=== PATIENT | female | born 1955 | race Caucasian/White ===

== ENCOUNTER 2023-10-03 13:00 | Outpatient (AMB) | payer MEDICARE, BC, SELFPAY ==
--- NOTE | 2023-10-03 13:11 | MHC.OFFVIS ---
Vital Signs 10/03/23 13:21 Height 5 ft 3 in Weight 211 lb 2 oz BMI 37.4 BP 144/90 H Blood Pressure Location Lt brachial Position Sitting Respiration 17 Pulse 103 H Pulse Source Pulse Oximeter Pulse Oximetry (%) 98 Oxygen Delivery Method Room Air Intake Visit Reasons: ENP-R arm/hand tremor hx CVA - lvm Intake Note: Pt presents for new pt evaluation for right hand tremors and hx of CVA. Help Desk Support Specialist Required: No Allergies No Known Allergies Allergy (Verified 10/03/23 13:13) Medication List - Last Reconciled 10/03/23 by Vanessa Paredes MD adalimumab (Humira) 40 mg subcut Q2W citalopram 10 mg PO DAILY clonazepam 0.5 mg PO BEDTIME folic acid 0.8 mg PO DAILY gabapentin 300 mg PO TID levothyroxine 100 mcg PO DAILY meclizine 12.5 mg PO BID-QID PRN metoprolol succinate ER 25 mg PO DAILY simvastatin 20 mg PO DAILY warfarin 3 mg PO DAILY HPI Comments Details: 68y/o Right handed female comes for evaluation of tremors. 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 SInce then she always had some tremors on her right side but worsening for past 2-3 years. The tremors used to be with action but now it is at rest . she had difficulty with tasks with her right hand since her stroke. she also reports some cognitive issues SHe has h/o LALITA on CPAP but not compliant.No voice tremors or head tremors. [facility] Medical History (Updated 10/03/23 @ 13:50 by Vanessa Paredes MD) CVA (cerebral vascular accident) Coarse tremors LALITA on CPAP Ulcerative colitis Hypothyroid HTN (hypertension) GERD (gastroesophageal reflux disease) Hyperlipidemia Restless legs syndrome (RLS) Atrial fibrillation Anxiety Asthma PMR (polymyalgia rheumatica) Rheumatoid arthritis Surgical History H/O mitral valve replacement H/O total ankle replacement Social History Household Members: None Housing: House Alcohol intake: former Comment: seldom Patient Tobacco Use Status: Former Tobacco user Physical Exam Vital Signs: Last Vital Signs Pulse 103 H 10/03/23 13:21 Resp 17 10/03/23 13:21 BP 144/90 H 10/03/23 13:21 Pulse Ox 98 10/03/23 13:21 Oxygen Delivery Method Room Air 10/03/23 13:21 BMI result Body Mass Index 37.4 Const General: cooperative and comfortable Nutritional Appearance: obese Orientation/consciousness: patient oriented x3 Eyes Pupils: Equal, round and reactive pupils present Neuro Other: Speech- dysarthria , slurred Right hand - dysmetria , rest tremors , power 3-4/5 , poor coordination gait- slow General: patient oriented x3, tone normal and moves all extremities Cranial nerves: Yes Facial sensation intact/muscles of mastication intact, Yes Equal, round and reactive pupils present, Yes Bilaterally intact EOM present, Yes Nystagmus not present, Yes Normal facial strength present and Yes Midline tongue present Cognition (Neuro): normal cognition Gait exam (Neuro): Antalgic gait present Deep tendon reflexes (DTR's): Right triceps reflex intensity grade: 2+, Left triceps reflex intensity grade: 2+, Rt Biceps (C5, C6): 2+, Left biceps reflex intensity grade: 2+, Right brachioradialis reflex intensity grade: 2+, Left brachioradialis reflex intensity grade: 2+, Right patellar reflex intensity grade: 2+, Left patellar reflex intensity grade: 1+, Right ankle reflex intensity grade: 2+ and Left ankle reflex intensity grade: 1+ Assessment & Plan Assessment & Plan (1) Coarse tremors: Comment: s/p CVA Code(s): G25.2 - Other specified forms of tremor Category: Medical (2) CVA (cerebral vascular accident): Comment: with residual Right dysmetria and mild weakness Code(s): I63.9 - Cerebral infarction, unspecified Category: Medical (3) LALITA on CPAP: Code(s): G47.33 - Obstructive sleep apnea (adult) (pediatric) Category: Medical Plan MRI brain to evaluate will consider Flory scan Restart CPAP Orders: Orders MR head/brain wo con Today G25.2 - Other specified forms of tremor, I63.9 - Cerebral infarction, unspecified Coding Level of Care Code New Pt Level 4 (81912) Diagnoses Coarse tremors G25.2 CVA (cerebral vascular accident) I63.9 LALITA on CPAP G47.33
[2023-10-03 13:21] VITALS: BP 144/90; PULSE 103; RESP 17; O2SAT 98; BMI 37.4
== END 2023-10-03 13:55 | disposition home or self-care (01) ==
PROVIDERS: PCP Internal Medicine; Visit Provider Psychiatry & Neurology Neurology
DX: I69.393 Ataxia following cerebral infarction (principal); G25.2 Other specified forms of tremor; G47.33 Obstructive sleep apnea (adult) (pediatric)
CPT/HCPCS: 99204

== ENCOUNTER → 2023-10-03 13:00 | Outpatient (BNVA) | payer MEDICARE, BC, SELFPAY | PROVIDERS: PCP Internal Medicine; Visit Provider Psychiatry & Neurology Neurology | DX: I69.351 Hemiplegia and hemiparesis following cerebral infarction affecting right dominant side (principal); G25.2 Other specified forms of tremor; G47.33 Obstructive sleep apnea (adult) (pediatric); Z95.2 Presence of prosthetic heart valve; Z79.01 Long term (current) use of anticoagulants | CPT/HCPCS: 99202 ==

== ENCOUNTER 2023-12-26 10:42 | Outpatient (AMB) | payer MEDICARE, BC, SELFPAY ==
[2023-12-26 11:07] VITALS: BP 118/72; PULSE 67; RESP 16; O2SAT 97; BMI 37.9
--- NOTE | 2023-12-26 11:07 | A.OFFVIS_ITS ---
Vital Signs 12/26/23 11:07 Height 5 ft 3 in Weight 214 lb BMI 37.9 BP 118/72 Blood Pressure Location Rt brachial Position Sitting Respiration 16 Pulse 67 Pulse Source Pulse Oximeter Pulse Oximetry (%) 97 Oxygen Delivery Method Room Air Intake Visit Reasons: Follow up R arm/hand tremor hx CVA - LVMw/add Intake Note: Pt presents for 3 month follow up for CVA. Licensed Architect Required: No Allergies No Known Allergies Allergy (Verified 12/26/23 11:07) Medication List - Last Reconciled 12/26/23 by Vanessa Paredes MD adalimumab (Humira) 40 mg subcut Q2W citalopram 10 mg PO DAILY clonazepam 0.5 mg PO BEDTIME folic acid 0.8 mg PO DAILY gabapentin 300 mg PO TID levothyroxine 100 mcg PO DAILY meclizine 12.5 mg PO BID-QID PRN metoprolol succinate ER 25 mg PO DAILY simvastatin 20 mg PO DAILY warfarin 3 mg PO DAILY HPI Comments Details: 68y/o Right handed female comes for follow up of tremors. 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 SInce then she always had some tremors on her right side but worsening for past 2-3 years. The tremors used to be with action but now it is at rest . she had difficulty with tasks with her right hand since her stroke. she also reports some cognitive issues SHe has h/o LALITA on CPAP but not compliant.No voice tremors or head tremors. [facility] Medical History Snoring CVA (cerebral vascular accident) Coarse tremors LALITA on CPAP Ulcerative colitis Hypothyroid HTN (hypertension) GERD (gastroesophageal reflux disease) Hyperlipidemia Restless legs syndrome (RLS) Atrial fibrillation Anxiety Asthma PMR (polymyalgia rheumatica) Rheumatoid arthritis Surgical History H/O mitral valve replacement H/O total ankle replacement Social History Household Members: None Housing: House Alcohol intake: former Comment: seldom Patient Tobacco Use Status: Former Tobacco user Physical Exam Vital Signs: Last Vital Signs Pulse 67 12/26/23 11:07 Resp 16 12/26/23 11:07 BP 118/72 12/26/23 11:07 Pulse Ox 97 12/26/23 11:07 Oxygen Delivery Method Room Air 12/26/23 11:07 BMI result Body Mass Index 37.9 Const General: cooperative and comfortable Nutritional Appearance: obese Orientation/consciousness: patient oriented x3 Eyes Pupils: Equal, round and reactive pupils present Neuro Other: Speech- dysarthria , slurred Right hand - dysmetria , rest tremors , power 3-4/5 , poor coordination gait- slow General: patient oriented x3, tone normal and moves all extremities Cranial nerves: Yes Facial sensation intact/muscles of mastication intact, Yes Equal, round and reactive pupils present, Yes Bilaterally intact EOM present, Yes Nystagmus not present, Yes Normal facial strength present and Yes Midline tongue present Cognition (Neuro): normal cognition Gait exam (Neuro): Antalgic gait present Assessment & Plan Assessment & Plan (1) Coarse tremors: Comment: s/p CVA Code(s): G25.2 - Other specified forms of tremor Category: Medical (2) CVA (cerebral vascular accident): Comment: with residual Right dysmetria and mild weakness Code(s): I63.9 - Cerebral infarction, unspecified Category: Medical (3) LALITA on CPAP: Code(s): G47.33 - Obstructive sleep apnea (adult) (pediatric) Category: Medical Plan MRI brain scheduled this week will consider Flory scan Restart CPAP - compliance stressed .will repeat sleep study for reevaluation Orders: Orders RT home sleep study Today G47.10 - Hypersomnia, unspecified, R06.83 - Snoring Referrals Medical Weight Management Referral E66.9 - Obesity, unspecified, G47.33 - Obstructive sleep apnea (adult) (pediatric), I63.9 - Cerebral infarction, unspecified Coding Level of Care Code Est Pt Level 4 (94902) Diagnoses Coarse tremors G25.2 CVA (cerebral vascular accident) I63.9 LALITA on CPAP G47.33
== END 2023-12-26 11:39 | disposition home or self-care (01) ==
PROVIDERS: PCP Internal Medicine; Visit Provider Psychiatry & Neurology Neurology
DX: I69.351 Hemiplegia and hemiparesis following cerebral infarction affecting right dominant side (principal); G25.2 Other specified forms of tremor; G47.33 Obstructive sleep apnea (adult) (pediatric)
CPT/HCPCS: 99214

== ENCOUNTER → 2023-12-26 10:42 | Outpatient (BNVA) | payer MEDICARE, BC, SELFPAY | PROVIDERS: PCP Internal Medicine; Visit Provider Psychiatry & Neurology Neurology | DX: G25.2 Other specified forms of tremor (principal); G47.33 Obstructive sleep apnea (adult) (pediatric); I69.351 Hemiplegia and hemiparesis following cerebral infarction affecting right dominant side; E66.9 Obesity, unspecified; Z95.2 Presence of prosthetic heart valve; Z79.01 Long term (current) use of anticoagulants | CPT/HCPCS: 99212 ==

== ENCOUNTER 2023-12-28 08:30 | Outpatient (REF) | payer MEDICARE, BC, SELFPAY ==
--- NOTE | ~2023-12-28 | MR_ITS ---
EXAMINATION: MR BRAIN WITHOUT CONTRAST CLINICAL INFORMATION: Cerebral infarction COMPARISON: MRI brain on 03/10/2018 TECHNIQUE: MRI of the brain was obtained using routine sequences without contrast. FINDINGS: No acute intracranial hemorrhage or infarct. Scattered and confluent periventricular and deep white matter T2/FLAIR hyperintensities, nonspecific however commonly seen with small vessel ischemic disease. Diffuse prominence of the sulci with associated ex vacuo dilation of the ventricles compatible with global cerebral atrophy. No midline shift or hydrocephalus. No acute extra-axial fluid collections. The osseous structures are unremarkable. The pituitary gland, pineal gland and remaining midline structures are unremarkable. Sequelae of bilateral lens replacement. Otherwise, no acute orbital pathology. Mild mucosal thickening of the paranasal sinuses. The mastoid air cells are clear. MR/MR head/brain wo con IMPRESSION: 1. No acute intracranial abnormality. 2. Chronic microangiopathy and global cerebral atrophy. Electronically signed by: Gris Nettles MD 01/26/2024 01:41 PM EDT
== END 2023-12-28 08:31 | disposition home or self-care (01) ==
LOC: HO.MRI 08:30
PROVIDERS: PCP Internal Medicine; Visit Provider Psychiatry & Neurology Neurology
DX: I63.9 Cerebral infarction, unspecified (principal); G25.2 Other specified forms of tremor
CPT/HCPCS: 70551

== ENCOUNTER → 2024-02-13 09:59 | Outpatient (REF) | payer MEDICARE, BC, SELFPAY | LOC: HO.SL 09:59 | PROVIDERS: PCP Internal Medicine; Visit Provider Psychiatry & Neurology Neurology | DX: R06.83 Snoring (principal); G47.10 Hypersomnia, unspecified | CPT/HCPCS: 95806 ==

== ENCOUNTER → 2024-02-13 10:15 | Outpatient (BNV) | payer MEDICARE, BC, SELFPAY | PROVIDERS: PCP Internal Medicine; Visit Provider Internal Medicine | DX: R06.83 Snoring (principal) | CPT/HCPCS: 95806 ==

== ENCOUNTER 2024-06-27 10:53 | Outpatient (AMB) | payer MEDICARE, BC, SELFPAY ==
[2024-06-27 10:57] VITALS: BP 118/82; BMI 37.9
--- NOTE | 2024-06-27 10:57 | MHC.OFFVIS ---
Vital Signs 06/27/24 10:57 Height 5 ft 3 in Weight 214 lb BMI 37.9 BP 118/82 Blood Pressure Location Rt brachial Position Sitting Intake Visit Reasons: Follow up R arm/hand tremor hx CVA Intake Note: Patient presents for follow up Allergies No Known Allergies Allergy (Verified 06/27/24 11:00) Medication List - Last Reconciled 06/27/24 by Vanessa Paredes MD adalimumab (Humira) 40 mg subcut Q2W citalopram 10 mg PO DAILY clonazepam 0.5 mg PO BEDTIME folic acid 0.8 mg PO DAILY gabapentin 300 mg PO TID levothyroxine 100 mcg PO DAILY meclizine 12.5 mg PO BID-QID PRN metoprolol succinate ER 25 mg PO DAILY simvastatin 20 mg PO DAILY warfarin 3 mg PO DAILY HPI Comments Details: 68y/o Right handed female comes for follow up of tremors.she feels her tremors are worse.MRI matthew was nonfocal she reports excessive daytime sleepiness. she stopped using CPAP. 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 SInce then she always had some tremors on her right side but worsening for past 2-3 years. The tremors used to be with action but now it is at rest . she had difficulty with tasks with her right hand since her stroke. she also reports some cognitive issues SHe has h/o LALITA on CPAP but not compliant.No voice tremors or head tremors. [facility] Medical History Obesity Snoring CVA (cerebral vascular accident) Coarse tremors LALITA on CPAP Ulcerative colitis Hypothyroid HTN (hypertension) GERD (gastroesophageal reflux disease) Hyperlipidemia Restless legs syndrome (RLS) Atrial fibrillation Anxiety Asthma PMR (polymyalgia rheumatica) Rheumatoid arthritis Surgical History H/O mitral valve replacement H/O total ankle replacement Social History Household Members: None Housing: House Alcohol intake: former Comment: seldom Patient Tobacco Use Status: Former Tobacco user Physical Exam Vital Signs: Last Vital Signs BP 118/82 06/27/24 10:57 BMI result Body Mass Index 37.9 Const General: cooperative and comfortable Nutritional Appearance: obese Orientation/consciousness: patient oriented x3 Eyes Pupils: Equal, round and reactive pupils present Neuro Other: Speech- dysarthria , slurred Right hand - dysmetria , rest tremors , power 3-4/5 , poor coordination gait- slow General: patient oriented x3, tone normal and moves all extremities Cranial nerves: Yes Facial sensation intact/muscles of mastication intact, Yes Equal, round and reactive pupils present, Yes Bilaterally intact EOM present, Yes Nystagmus not present, Yes Normal facial strength present and Yes Midline tongue present Cognition (Neuro): normal cognition Gait exam (Neuro): Antalgic gait present Results Reviewed Results Reviewed: 01/2024 MRI brain without tanner No acute intracranial abnormality. 2. Chronic microangiopathy and global cerebral atrophy Assessment & Plan Assessment & Plan (1) Coarse tremors: Comment: s/p CVA - likely some mini ballistic movements ? parkinsonism Code(s): G25.2 - Other specified forms of tremor Category: Medical (2) CVA (cerebral vascular accident): Comment: with residual Right dysmetria and mild weakness Code(s): I63.9 - Cerebral infarction, unspecified Category: Medical Qualifiers: CVA mechanism: other Qualified Code(s): I63.89 - Other cerebral infarction Plan MRI brain reviewed Flory scan , will consider adding carbidopa/levodopa Home sleep test was inconclusive Orders: Orders RT PSG in-lab sleep study Today G47.33 - Obstructive sleep apnea (adult) (pediatric) DaTscan Today G25.2 - Other specified forms of tremor Coding Level of Care Code Est Pt Level 4 (51852) Complex EM visit Add On G2211 Diagnoses Coarse tremors G25.2 Cerebrovascular accident (CVA) due to other mechanism I63.89 CVA mechanism: other
--- OUTSIDE RECORDS SUMMARY | 2024-06-27 12:23 | XMS_ITS | Clinical Summary ---
Author Organization [facility] Address [address] [place] [address] Care Team Providers Care Staff Mechanical Engineer Name Role Phone Rivera Galicia DO Primary Care Provider [phone] Rocael Butts MD Unavailable [phone] Philip Grace MD Unavailable [phone] Allergies No known active allergies Medications Medication Sig Dispensed Refills Start Date End Date Status warfarin (COUMADIN) 4 MG tablet Take 4 mg by mouth daily at the same time. Active sulfaSALAzine (AZULFIDINE) 500 MG tabletIndications:take 3 tablets bid Take 500 mg by mouth 3 (three) times a day. Active sertraline (ZOLOFT) 100 MG tabletIndications:take 1 1/2 tablets qd Take 100 mg by mouth daily Indications: take 1 1/2 tablets qd. Active furosemide (LASIX) 40 MG tablet Take 40 mg by mouth daily. Active gabapentin (NEURONTIN) 300 MG capsule Take 300 mg by mouth 3 (three) times a day. Active metoPROLOL TARTRATE (LOPRESSOR) 25 MG tablet Take 25 mg by mouth 2 (two) times a day. Active simvastatin (ZOCOR) 20 MG tablet Take 20 mg by mouth nightly. Active clonazePAM (KlonoPIN) 0.5 MG tablet Take 0.5 mg by mouth nightly. Active adalimumab (HUMIRA) 20 MG/0.4ML injection kit Inject 20 mg under the skin every 14 days (2 weeks). Active levothyroxine (SYNTHROID, LEVOTHROID) 100 MCG tablet Take 1 tablet by mouth daily. 07/23/2020 Active Active Problems Problem Noted Date Diagnosed Date Depressive disorder 02/02/2021 Rheumatoid arthritis 02/02/2021 Ulcerative colitis 02/02/2021 Dystonic tremor 07/30/2020 Cerebellar ataxia 08/21/2018 S/P MVR (mitral valve replacement) 07/19/2017 Essential tremor 10/30/2015 Atrial fibrillation 10/30/2015 Stroke 10/30/2015 Hypothyroidism 10/30/2015 Migraine 10/30/2015 Nephrolithiasis 10/30/2015 LALITA (obstructive sleep apnea) 10/30/2015 Status post mitral valve replacement with metall ic valve 10/30/2015 Synovial cyst of popliteal space 08/13/2015 Abnormality of gait 01/08/2015 Paroxysmal nerve pain 01/06/2015 Resolved Problems Problem Noted Date Diagnosed Date Resolved Date Choreoathetosis 01/01/2019 07/30/2020 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 07/30/2020 Immunizations Name Administration Dates Next Due H1N1 All Forms 05/16/2009 Family History Medical History Relation Name Comments Heart disease Brother Stroke Brother Heart disease Father Stroke Father Dementia Mother Relation Name Status Comments Brother Alive Father (Age 83) Mother (Age 75) Sister Social History Tobacco Use Types Packs/Day Years Used Date Smoking Tobacco: Former Smokeless Tobacco: Never Comments:Quit 20 yrs ago Alcohol Use Standard Drinks/Week Comments Yes 7 (1 standard drink = 0.6 oz pur e alcohol) Sex and Gender Information Value Date Recorded Sex Assigned at Not on file Gender Identity Not on file Sexual Orientation Not on file Last Filed Vital Signs Vital Sign Reading Time Taken Comments Blood Pressure 120/75 02/02/2021 3:16 PM EDT Pulse 96 02/02/2021 3:16 PM EDT Temperature - - Respiratory Rate 17 09/20/2017 1:46 PM EDT Oxygen Saturation - - Inhaled Oxygen Concentration - - Weight 98.4 kg (217 lb) 07/30/2020 2:23 PM EST Height 160 cm (5' 3 ) 02/02/2021 3:16 PM EDT Body Mass Index 38.44 07/30/2020 2:23 PM EST Plan of Treatment Health Maintenance Due Date Last Done Comments Hepatitis C Virus Screening 1955 COVID-19 Vaccine (#1) 1958 Quantiferon Gold TB 09/10/1963 DTaP/Tdap/Td Vaccines (1 - Tdap) 1972 Pneumococcal Vaccines 50+ (1 of 2 - PCV) 1972 Zoster (Shingles) Vaccine (1 of 2) 1972 Mammogram 1993 Colonoscopy 1998 RSV Vaccine 60 years and old er and Patients (1 - Risk 60-74 years 1-dose series) 2013 DXA Bone Density (Females,Ag es 65 and older) 2018 Influenza Vaccine 01/05/2024 Hepatitis B Vaccines Aged Out No long er eligible based on patient's age to complete this topic Care Teams Staff Mechanical Engineer Relationship Specialty Start Date End Date Rivera Galicia DO [address] [place] [address] PCP - General Internal Medicine 09/20/17 Rocael Butts MD [address] [place] [address] Rheumatology 09/04/18 Philip Grace MD [address] [place] [address] Referring Provider Cardiovascular Disease 09/11/18
--- OUTSIDE RECORDS SUMMARY | 2024-06-27 12:23 | XMS_ITS | Encounter Summary ---
Author Organization [facility] Address [address] [place] [address] Care Team Providers Care Toppiece Chopper Name Role Phone Rivera Galicia DO Primary Care Provider Rocael Butts MD Unavailable [phone] Philip Grace MD Unavailable [phone] Encounter Details Date Type Department Care Team (Late st Contact Info) Description 04/26/2019 Scanned Document [facility] Neurology [address] [phone] Steven Narayanan MD [address] [facility] [address] [place] [address] Social History Tobacco Use Types Packs/Day Years Used Date Smoking Tobacco: Former Smokeless Tobacco: Never Comments:Quit 20 yrs ago Alcohol Use Standard Drinks/Week Comments Yes 1 (1 standard drink = 0.6 oz pur e alcohol) 2 per week Sex and Gender Information Value Date Recorded Sex Assigned at Not on file Gender Identity Not on file Sexual Orientation Not on file documented as of this encounter Plan of Treatment Not on file documented as of this encounter Visit Diagnoses Not on filedocumented in this encounter Care Teams Toppiece Chopper Relationship Specialty Start Date End Date Rivera Galicia DO [address] [place] [address] PCP - General Internal Medicine 09/20/17 Rocael Butts MD [address] [place] [address] Rheumatology 09/04/18 Philip Grace MD [address] [place] [address] Referring Provider Cardiovascular Disease 09/11/18 documented as of this encounter
--- OUTSIDE RECORDS SUMMARY | 2024-06-27 12:23 | XMS_ITS | Encounter Summary ---
Author Organization [facility] Address [address] [place] [address] Care Team Providers Care Neighborhood Planner Name Role Phone Rivera Galicia DO Primary Care Provider [phone] Rocael Butts MD Unavailable [phone] Philip Grace MD Unavailable [phone] Encounter Details Date Type Department Care Team (Late st Contact Info) Description 05/18/2019 Scanned Document [facility] Neurology [address] [address] Steven Narayanan MD [address] [facility] [address] [place], [place] [address] Social History Tobacco Use Types Packs/Day Years [...] on filedocumented in this encounter Care Teams Neighborhood Planner Relationship Specialty Start Date End Date Rivera Galicia DO [address] [place] [address] PCP - General Internal Medicine 09/20/17 Rocael Butts MD [address] [place] [address] Rheumatology 09/04/18 Philip Grace MD [address] [place] [address] Referring Provider Cardiovascular Disease 09/11/18 documented as of this encounter
--- OUTSIDE RECORDS SUMMARY | 2024-06-27 12:23 | XMS_ITS | Encounter Summary ---
Author Organization [facility] Address [address] [place] [address] Care Team Providers Care M48/M60 Tank Driver Name Role Phone Rivera Galicia DO Primary Care Provider [phone] Rocale Butts MD Unavailable [phone] Philip Grace MD Unavailable [phone] Encounter Details Date Type Department Care Team (Late st Contact Info) Description 04/26/2019 Scanned Document [facility] Neurology [address] [place] [address] Shawna Brady MD [address] [facility] [address] [place] [address] Social History Tobacco Use Types Packs/Day Years [...] on filedocumented in this encounter Care Teams [id number]/M60 Tank Driver Relationship Specialty Start Date End Date Rivera Galicia DO [address] [place] [address] PCP - General Internal Medicine 09/20/17 Rocael Butts MD [address] [place] [address] Rheumatology 09/04/18 Philip Grace MD [address] [place] [address] Referring Provider Cardiovascular Disease 09/11/18 documented as of this encounter
--- OUTSIDE RECORDS SUMMARY | 2024-06-27 12:23 | XMS_ITS | Encounter Summary ---
Author Organization [facility] Address [address] [place] [address] Care Team Providers Care Test Engine Mechanic Name Role Phone Rivera Galicia DO Primary Care Provider Rocael Butts MD Unavailable [phone] Philip Grace MD Unavailable Encounter Details Date Type Department Care Team (Late st Contact Info) Description 04/02/2019 Scanned Document [facility] Neurology [address] [place] [id number] Moo Godfrey APRN [address] [place] [address] Social History Tobacco Use Types Packs/Day Years [...] on filedocumented in this encounter Care Teams Test Engine Mechanic Relationship Specialty Start Date End Date Rivera Galicia DO [address] [place] [phone] PCP - General Internal Medicine 09/20/17 Rocael Butts MD [address] [place] [address] Rheumatology 09/04/18 Philip Grace MD [address] [place] [address] Referring Provider Cardiovascular Disease 09/11/18 documented as of this encounter
--- OUTSIDE RECORDS SUMMARY | 2024-06-27 12:23 | XMS_ITS | Encounter Summary ---
Author Organization [facility] Address [address] [place] [address] Care Team Providers Care Electronics Production Supervisor Name Role Phone Rivera Galicia DO Primary Care Provider [phone] Rocael Butts MD Unavailable Philip Grace MD Unavailable [phone] Encounter Details Date Type Department Care Team (Late st Contact Info) Description 01/08/2019 Scanned Document [facility] Neurology [address] [place] [phone] Shawna Brady MD [address] [address] Social History Tobacco Use Types Packs/Day [...] on filedocumented in this encounter Care Teams Electronics Production Supervisor Relationship Specialty Start Date End Date Rivera Galicia DO [address] [place] [phone] PCP - General Internal Medicine 09/20/17 Rocael Butts MD [address] [place] [address] Rheumatology 09/04/18 Philip Grace MD [address] [place] [address] Referring Provider Cardiovascular Disease 09/11/18 documented as of this encounter
--- OUTSIDE RECORDS SUMMARY | 2024-06-27 12:23 | XMS_ITS | Encounter Summary ---
Author Organization [facility] Address [address] [place] [address] Care Team Providers Care Operating Room Surgical Technician Name Role Phone Rivera Galicia DO Primary Care Provider [phone] Rocael Butts MD Unavailable [phone] Philip Grace MD Unavailable [phone] Encounter Details Date Type Department Care Team (Late st Contact Info) Description 04/12/2019 Scanned Document [facility] Neurology [address] [place] [phone] Moo Godfrey APRN [address] [place] [address] Social History Tobacco Use Types Packs/Day Years [...] on filedocumented in this encounter Care Teams Operating Room Surgical Technician Relationship Specialty Start Date End Date Rivera Galicia DO [address] [place] [address] PCP - General Internal Medicine 09/20/17 Rocael Butts MD [address] [place] [address] Rheumatology 09/04/18 Philip Grace MD [address] [place] [address] Referring Provider Cardiovascular Disease 09/11/18 documented as of this encounter
--- OUTSIDE RECORDS SUMMARY | 2024-06-27 12:24 | XMS_ITS | Encounter Summary ---
Author Organization [facility] Address [address] [place] [address] Care Team Providers Care Store Sales Consultant Name Role Phone Rivera Galicia DO Primary Care Provider [phone] Rocael Butts MD Unavailable [phone] Philip Grace MD Unavailable [phone] Reason for Visit * Reason Onset Date Comments Medication Problem 04/25/2018 Shawna Galindo Encounter Details Date Type Department Care Team (Late st Contact Info) Description 04/25/[address] [facility] Neurology [place] [phone] Shawna Brady MD [address] [place] [address] Medication Problem (Shawna Brady) Social History Tobacco Use Types Packs/Day Years [...] on file documented as of this encounter Miscellaneous Notes * Telephone Encounter - Emely Sparks MA - 08/18/2018 9:39 AM EDT I called and spoke to the pt letting her know MM response. She agreed and will wait to hear from our office re: the f/up with the APRN. HEWITT * Telephone Encounter - Shawna Brady MD - 08/18/2018 9:25 AM EDT Please tell her I recommend she sees one of the TYPEWRITER RIBBON WINDER with one of hte other neurologists as I am out of town and will not have any openings till If she is okay with this please schedule her with TYPEWRITER RIBBON WINDER * Telephone Encounter - Emely Sparks MA - 08/18/2018 9:15 AM EDT The pt called our office back and let me know that she is currently on Amantadine 100mg BID. She let me know when she first started taking it it really helped her tremors. She has noticed for the past 3-4 weeks that her tremors are increasing again and she feels the medication isn't working the same. She isn't having any s/e and again is taking 1 BID. I let her know that I will talk to MM and will give her a call back KASH * Telephone Encounter - Emely Sparks MA - 08/18/2018 8:38 AM EDT I tried to reach the pt again this morning but had to leave another message asking her to give our office a call back KASH * Telephone Encounter - Emely Sparks MA - 08/17/2018 3:25 PM EDT I tried to reach the pt again but had to L/M asking her to call our office back KASH * Telephone Encounter - Emely Sparks MA - 08/17/2018 11:55 AM EDT L/M asking the pt to give our office a call back KASH documented in this encounter Plan of Treatment Not on file documented as of this encounter Visit Diagnoses Not on filedocumented in this encounter Care Teams Store Sales Consultant Relationship Specialty Start Date End Date AidenRivera underwood DO [address] [place] [address] PCP - General Internal Medicine 09/20/17 Rocael Butts MD [address] [place] [address] Rheumatology 09/04/18 Philip Grace MD [address] [place] [address] Referring Provider Cardiovascular Disease 09/11/18 documented as of this encounter
--- OUTSIDE RECORDS SUMMARY | 2024-06-27 12:24 | XMS_ITS | Encounter Summary ---
Author Organization [facility] Address [address] [place] [address] Care Team Providers Care Relations Mgr Name Role Phone Rivera Galicia DO Primary Care Provider [phone] Rocael Butts MD Unavailable [phone] Philip Grace MD Unavailable [phone] Encounter Details Date Type Department Care Team (Late st Contact Info) Description 01/20/2018 Scanned Document [facility] Neurology [address] [place] [address] Shawna Brady MD 100 [facility] [address] [place] [phone] Social History Tobacco Use Types Packs/Day Years [...] on filedocumented in this encounter Care Teams Relations Mgr Relationship Specialty Start Date End Date Rivera Galicia DO [address] [place] [address] PCP - General Internal Medicine 09/20/17 Rocael Butts MD [address] [place] [address] Rheumatology 09/04/18 Philip Grace MD [address] [place] [address] Referring Provider Cardiovascular Disease 09/11/18 documented as of this encounter
--- OUTSIDE RECORDS SUMMARY | 2024-06-27 12:24 | XMS_ITS | Encounter Summary ---
Author Organization [facility] Address [address] [place] [address] Care Team Providers Care Roster Clerk Name Role Phone Rivera Galicia DO Primary Care Provider [phone] Rocael Butts MD Unavailable [phone] Philip Grace MD Unavailable [phone] Encounter Details Date Type Department Care Team (Late st Contact Info) Description 04/21/2018 Scanned Document [facility] Neurology [address] [place] [phone] Shawna Brady MD 100 [facility] 102 [place] [phone] Social History Tobacco Use Types Packs/Day Years [...] on filedocumented in this encounter Care Teams Roster Clerk Relationship Specialty Start Date End Date Rivera Galicia DO [address] [place] [address] PCP - General Internal Medicine 09/20/17 Rocael Butts MD [address] [place] [address] Rheumatology 09/04/18 Philip Grace MD [address] [place] [address] Referring Provider Cardiovascular Disease 09/11/18 documented as of this encounter
--- OUTSIDE RECORDS SUMMARY | 2024-06-27 12:24 | XMS_ITS | Encounter Summary ---
Author Organization [facility] Address [address] [place] [address] Care Team Providers Care Field Sampling Technician Name Role Phone Rivera Galicia DO Primary Care Provider [phone] Rocael Butts MD Unavailable [phone] Philip Grace MD Unavailable [phone] Encounter Details Date Type Department Care Team (Late st Contact Info) Description 09/06/2018 Scanned Document [facility] Neurology [address] [place] [address] Chantal Cobb MD 35 [facility] 6 [place] [address] Social History Tobacco Use Types Packs/Day Years [...] on filedocumented in this encounter Care Teams Field Sampling Technician Relationship Specialty Start Date End Date Rivera Galicia DO [address] [place] [address] PCP - General Internal Medicine 09/20/17 Rocael Butts MD [address] [place] [address] Rheumatology 09/04/18 Philip Grace MD [address] [place] [address] Referring Provider Cardiovascular Disease 09/11/18 documented as of this encounter
--- OUTSIDE RECORDS SUMMARY | 2024-06-27 12:24 | XMS_ITS | Encounter Summary ---
Author Organization [facility] Address [address] [place] [address] Care Team Providers Care Programming Internship Name Role Phone Rivera Galicia DO Primary Care Provider [phone] Rocael Butts MD Unavailable Philip Grace MD Unavailable [phone] Encounter Details Date Type Department Care Team (Late st Contact Info) Description 01/20/2018 Scanned Document [facility] Neurology [address] [place] [address] Shawna Brady MD 100 [facility] 102 [place] [phone] Social History Tobacco Use Types Packs/Day Years [...] on filedocumented in this encounter Care Teams Programming Internship Relationship Specialty Start Date End Date Rivera Galicia DO [address] [place] [address] PCP - General Internal Medicine 09/20/17 Rocael Butts MD [address] [place] [address] Rheumatology 09/04/18 Philip Grace MD [address] [place] [address] Referring Provider Cardiovascular Disease 09/11/18 documented as of this encounter
--- OUTSIDE RECORDS SUMMARY | 2024-06-27 12:24 | XMS_ITS | Encounter Summary ---
Author Organization [facility] Address [address] [place] [address] Care Team Providers Care Technical Sme Name Role Phone Provider, Unknown Primary Care Provider [phone] Rivera Galicia DO Primary Care Provider [phone] Rocael Butts MD Unavailable [phone] Philip Grace MD Unavailable [phone] Encounter Details Date Type Department Care Team (Late st Contact Info) Description 03/28/2017 Scanned Document [facility] [address] [place] [phone] Clara Izquierdo MD [address] [place] [address] Social History Tobacco Use Types Packs/Day Years Used Date Smoking Tobacco: Former Smokeless Tobacco: Former Alcohol Use Standard Drinks/Week Comments Yes 1 [...] on filedocumented in this encounter Care Teams Technical Sme Relationship Specialty Start Date End Date Provider, Unknown 1 DO NOT USE THIS RECORD PCP - General 02/03/16 09/19/17 Rivera Galicia DO [address] [place] [address] PCP - General Internal Medicine 09/20/17 Rocael Butts MD [address] [place] [address] Rheumatology 09/04/18 Philip Grace MD [address] [place] [address] Referring Provider Cardiovascular Disease 09/11/18 documented as of this encounter
--- OUTSIDE RECORDS SUMMARY | 2024-06-27 12:24 | XMS_ITS | Clinical Summary ---
Author Organization [facility] Address [address] [place] [address] Phone Care Team Providers Care Medical Appointment Clerk Name Role Phone AidenShorty underwood DO Primary Care Provider [phone] Encounters Date Type Department Care Team Description 04/20/2024 10:00 AM EST - 04/20/2024 11:59 PM EST Hospital Encounter [facility] Bone Density [address] [place] [address] Postmenopausal Discharge Disposition: Home or Self Care from Last 3 Months Social History Tobacco Use Types Packs/Day Years Used Date Smoking Tobacco: Former Smokeless Tobacco: Never Alcohol Use Standard Drinks/Week Comments Yes 0 (1 standard drink = 0.6 oz pur e alcohol) Sex and Gender Information Value Date Recorded Sex Assigned at Not on file Gender Identity Not on file Sexual Orientation Not on file Obstetrics History Last Filed Vital Signs Vital Sign Reading Time Taken Comments Blood Pressure 120/80 12/30/2022 1:07 PM EDT Sit ting L Arm Pulse 85 12/30/2022 1:07 PM EDT Temperature - - Respiratory Rate - - Oxygen Saturation - - Inhaled Oxygen Concentration - - Weight 93 kg (205 lb) 12/30/2022 1:07 PM EDT Height 160 cm (5' 3 ) 12/30/2022 1:07 PM EDT Body Mass Index 36.31 12/30/2022 1:07 PM EDT Plan of Treatment Health Maintenance Due Date Last Done Comments Zoster Vaccines (1 of 2) 09/10/2003 Pneumococcal Vaccine: 65+ Years (2 of 2 - PCV) 12/23/2021 12/23/2020 Cholesterol Screening (Lipid Panel) 05/05/2022 Colorectal Cancer Screening: Colonoscopy 05/05/2022 Depression Screening 05/05/2022 Falls Risk Assessment 05/05/2022 Medicare Annual Wellness Visit 05/05/2022 Social Influencers of Health Screening 05/05/2022 COVID-19 Vaccine ( season) 2024 06/15/2023, 05/19/2022, 10/23/2021, Additional history exists Influenza Vaccine (#1) 2024 3, 03/02/2022, 02/15/2022, Additional history exists Breast Cancer Screening 08/24/2025 08/25/2023, 07/17 RSV Immunization Patients 60+ Years Old (1 - 1-dose 75+ series) 2028 DTaP,Tdap,and Td Vaccines (2 - Td or Tdap) 12/18/2029 12/19/2019 Osteoporosis Screening (Bone Density Screening) 04/20/2034 04/20/2024 Hepatitis C Screening Completed 04/11/2023 HIB Vaccines Aged Out No longer eligi ble based on patient's age to complete this topic HPV Vaccines Aged Out No longer eligi ble based on patient's age to complete this topic Hepatitis A Vaccines Aged Out No long er eligible based on patient's age to complete this topic Hepatitis B Vaccines Aged Out No long er eligible based on patient's age to complete this topic IPV Vaccines Aged Out No longer eligi ble based on patient's age to complete this topic MMR Vaccines Aged Out No longer eligi ble based on patient's age to complete this topic Meningococcal ACWY Vaccine Aged Out N o longer eligible based on patient's age to complete this topic RSV Immunization Patients Under 20 months Aged Out No longer eligible based on patient's age to complete this topic Varicella Vaccines Aged Out No longer eligible based on patient's age to complete this topic Procedures Procedure Name Priority Date/Time Associated Diagnosis Comments BD BONE DENSITY DXA AXIAL SKELETON Routine 04/20/2024 10:58 AM EST Postmenopausal KODY SCREENING DIGITAL Routine 08/25/2023 11:02 AM EDT Encounter for screening mammogram for malignant neoplasm of breast from Last 3 Months or Most Recently Relevant to Health Maintenance Results * BD Bone Density DXA Axial Skeleton (04/20/2024 10:58 AM EST) Anatomical Region Laterality Modality Wrist, Hip, L-spine Bone Densito metry 04/20/2024 11:0 3 AM EST Impressions 04/20/2024 11:05 AM EST 1. Osteopenia. ??There has been an increase of 4.0% in bone mineral density in the lumbar spine since the prior examination of 05/09/2015. ??There has been a decrease of 9.4% in bone mineral density in the right femur and a decrease of 8.4% in bone mineral density in the left femur. 2. FRAX analysis yields a 10-year probability of major osteoporotic fracture of 22.2% and a 10-year probability of hip fracture of 4.7%. Code 92796 -------- FINAL REPORT -------- Dictated By: Mathew Joseph Dictated Date: 04/20/2024 11:03 ET Assigned Physician: Mathew Joseph Reviewed and Electronically Signed By: Mathew Joseph Signed Date: 04/20/2024 11:05 ET Workstation ID: [id number] Transcribed By: Self Edit Transcribed Date: 04/20/2024 11:04 ET Narrative 04/20/2024 11:05 AM EST HISTORY: ??The patient is a 68-year-old postmenopausal female with clinical concern for metabolic bone disease. FINDINGS: ??Dual energy x-ray absorptiometry of the lumbar spine and femurs is performed. The mean bone mineral density at L1-L4 is 1.087 gm/cm2 which is 92% of that of young normals and 98% of that of age matched controls. This yields a T- score of -0.8 and a Z-score of -0.2 and there is therefore no evidence of osteoporosis or osteopenia here. The mean bone mineral density of the femurs bilaterally is 0.866 gm/cm2 which is 86% of that of young normals and 95% of that of age matched controls. ??This yields a T-score of -1.1 and a Z-score of -0.4 which is diagnostic of osteopenia. ??The T-score of the right femoral neck is -2.1 and that of the left femoral neck is - 1.7 which is diagnostic of osteopenia. Procedure Note Mathew Joseph MD - 04/20/2024 HISTORY: The patient is a 68-year-old postmenopausal female with clinicalconcern for metabolic bone disease. FINDINGS: Dual energy x-ray absorptiometry of the lumbar spine and femursis performed. The mean bone mineral density at L1-L4 is 1.087 gm/cm2 whichis 92% of that of young normals and 98% of that of age matched controls.This yields a T-score of -0.8 and a Z-score of -0.2 and there is thereforeno evidence of osteoporosis or osteopenia here. The mean bone mineral density of the femurs bilaterally is 0.866 gm/vw1pckxe is 86% of that of young normals and 95% of that of age matchedcontrols. This yields a T-score of -1.1 and a Z-score of -0.4 which isdiagnostic of osteopenia. The T- score of the right femoral neck is -2.1and that of the left femoral neck is -1.7 which is diagnostic ofosteopenia. IMPRESSION: 1. Osteopenia. There has been an increase of 4.0% in bone mineral densityin the lumbar spine since the prior examination of 05/09/2015. There hasbeen a decrease of 9.4% in bone mineral density in the right femur and adecrease of 8.4% in bone mineral density in the left femur. 2. FRAX analysis yields a 10-year probability of major osteoporoticfracture of 22.2% and a 10-year probability of hip fracture of 4.7%. Code 66594 -------- FINAL REPORT -------- Dictated By: Mathew Joseph Dictated Date: 04/20/2024 11:03 ET Assigned Physician: Mathew Joseph Reviewed and Electronically Signed By: Mathew Joseph Signed Date: 04/20/2024 11:05 ET Workstation ID: [id number] Transcribed By: Self Edit Transcribed Date: 04/20/2024 11:04 ET Shorty Frida DO [facility] DXA PROCEDURES * KODY SCREENING DIGITAL (08/25/2023 11:02 AM EDT) Anatomical Region Laterality Modality Mammography 08/25/2023 9:12 AM EDT Narrative 08/25/2023 11:02 AM EDT [facility] Diagnostic Imaging Department [address] [place], [place] [phone] Patient: ??MISAEL NOVA Demetria ?/Age/Sex: 1955 Unit#: ??[id number] ? Location/Status: ??SPDIMAM/REG CLI ? Mnemonic/Ordering Site: ??DIGSC/SPMAM Ordering Physician: ??SHORTY CHONG MD [facility] Screening Digital - 08/25/23 - 0931 Report Status:Signed EXAM: [facility] Screening Digital EXAM DATE AND TIME: 08/25/2023 9:32 AM HISTORY: ??Screening. COMPARISON: ??07/17/18, 05/26/16, 05/09/15 TECHNIQUE: Bilateral digital breast tomosynthesis was performed in the CC and MLO projections. Computer aided detection with RF Arrays 3D 3.1 was employed. TISSUE DENSITY: a. The breasts are almost entirely fatty. FINDINGS: No suspicious masses, grouped microcalcifications, or areas of architectural distortion are seen. Vascular calcification is present. The skin is unremarkable. IMPRESSION: Stable mammographic appearance of the breasts. ??No evidence of malignancy is seen. A negative mammogram in the presence of a clinically suspicious palpable abnormality does not preclude the possibility of malignancy or alter the indications for biopsy. BI-RADS: ??Category 2: Benign RECOMMENDATION(S): 1: Routine screening mammogram BILATERAL in 1 year. Dictating Physician: ??ALENA ROSAS MD Electronically Signed by: ??ALENA ROSAS MD Dic Date/Time: ??08/25/23 110 Sign date/Time: ??08/25/23 110 Procedure Note Alena Rosas MD - 01/23/2024 [facility] Diagnostic Imaging Department [address] [place] [address] Patient: MISAEL NOVA./Age/Sex: 1955 - 67 - F Unit#: [id number] Location/Status: [facility] CLI Mnemonic/Ordering Site: [facility] Ordering Physician: SHORTY CHONG MD [facility] Screening Digital - 08/25/23 - 0931 Report Status:Signed EXAM: [facility] Screening Digital EXAM DATE AND TIME: 08/25/2023 9:32 AM HISTORY: Screening. COMPARISON: 07/17/18, 05/26/16, 05/09/15 TECHNIQUE: Bilateral digital breast tomosynthesis was performed in the CCand MLO projections. Computer aided detection with RF Arrays 3D 3.1was employed. TISSUE DENSITY: a. The breasts are almost entirely fatty. FINDINGS: No suspicious masses, grouped microcalcifications, or areas ofarchitectural distortion are seen. Vascular calcification is present. The skin is unremarkable. IMPRESSION: Stable mammographic appearance of the breasts. No evidence of malignancyis seen. A negative mammogram in the presence of a clinically suspicious palpable abnormality does not preclude the possibility of malignancy or alter the indications for biopsy. BI-RADS: Category 2: Benign RECOMMENDATION(S): 1: Routine screening mammogram BILATERAL in 1 year. Dictating Physician: ALENA ROSAS MD Electronically Signed by: ALENA ROSAS MD Dic Date/Time: 08/25/23 1102 Sign date/Time: 08/25/23 1102 Shorty Chong DO IMG BI PROCEDURES from Last 3 Months or Most Recently Relevant to Health Maintenance Care Teams Medical Appointment Clerk Relationship Specialty Start Date End Date Shorty Chong DO [address] [place] [phone] PCP - General 08/20/04
--- OUTSIDE RECORDS SUMMARY | 2024-06-27 12:24 | XMS_ITS | Encounter Summary ---
Author Organization [facility] Address [address] [place] [address] Care Team Providers Care Center Aisle Cashier Name Role Phone Rivera Galicia DO Primary Care Provider [phone] Rocael Butts MD Unavailable [phone] Philip Grace MD Unavailable [phone] Encounter Details Date Type Department Care Team (Late st Contact Info) Description 10/09/2018 Scanned Document [facility] Neurology [address] [place] [phone] Shawna Brady MD 100 [facility] [address] [place] [phone] Social History Tobacco Use Types Packs/Day Years [...] on filedocumented in this encounter Care Teams Center Aisle Cashier Relationship Specialty Start Date End Date Rivera Galicia DO [address] [place] [address] PCP - General Internal Medicine 09/20/17 Rocael Butts MD [address] [place] [address] Rheumatology 09/04/18 Philip Grace MD [address] [place] [address] Referring Provider Cardiovascular Disease 09/11/18 documented as of this encounter
--- OUTSIDE RECORDS SUMMARY | 2024-06-27 12:24 | XMS_ITS | Encounter Summary ---
Author Organization [facility] Address [address] [place] [address] Care Team Providers Care Primer Expeditor And Drier Name Role Phone Provider, Unknown Primary Care Provider [phone] Rivera Galicia DO Primary Care Provider [phone] Rocael Butts MD Unavailable [phone] Philip Grace MD Unavailable [phone] Encounter Details Date Type Department Care Team (Late st Contact Info) Description 03/01/2016 Scanned Document [facility] [address] [place] [phone] Clara Izquierdo MD [address] [place] [address] Social History Tobacco Use Types Packs/Day Years Used Date Smoking Tobacco: Never Assessed Sex and Gender Information Value Date Recorded Sex Assigned at Not on file Gender Identity Not on file Sexual Orientation Not on file documented as of this encounter Plan of Treatment Not on file documented as of this encounter Visit Diagnoses Not on filedocumented in this encounter Care Teams Primer Expeditor And Drier Relationship Specialty Start Date End Date Provider, Unknown 1 DO NOT USE THIS RECORD PCP - General 02/03/16 09/19/17 Rivera Galicia DO [address] [place] [address] PCP - General Internal Medicine 09/20/17 Rocael Butts MD [address] [place] [address] Rheumatology 09/04/18 Philip Grace MD [address] [place] [address] Referring Provider Cardiovascular Disease 09/11/18 documented as of this encounter
== END 2024-06-27 11:21 | disposition home or self-care (01) ==
PROVIDERS: PCP Internal Medicine; Visit Provider Psychiatry & Neurology Neurology
DX: G25.2 Other specified forms of tremor (principal); I63.89 Other cerebral infarction
CPT/HCPCS: 99214; G2211

== ENCOUNTER → 2024-06-27 10:53 | Outpatient (BNVA) | payer MEDICARE, BC, SELFPAY | PROVIDERS: PCP Internal Medicine; Visit Provider Psychiatry & Neurology Neurology | DX: G25.2 Other specified forms of tremor (principal); G47.33 Obstructive sleep apnea (adult) (pediatric); Z86.73 Personal history of transient ischemic attack (TIA), and cerebral infarction without residual deficits; Z91.199 Patient's noncompliance with other medical treatment and regimen due to unspecified reason; Z99.89 Dependence on other enabling machines and devices | CPT/HCPCS: 99212 ==

== ENCOUNTER → 2024-07-19 19:30 | Outpatient (REF) | payer MEDICARE, BC, SELFPAY ==
--- OUTSIDE RECORDS SUMMARY | 2024-07-19 22:00 | XMS_ITS | Data Portability ---
Author Organization [place] - [facility], [facility] Office Address [address] [facility], [address] [place] [address] Care Team Providers Care Consumer Marketing Specialist Name Role Phone ABISHORTY MARRUFO Primary Care Provider Assessment Encounter Date Assessment Date Assessment LastModified by Organization Details LastModified Time 06/19/2019 06/19/2019 TREATMENT GIVEN: Sutures were removed and sterile dressing placed over the incision, followed by an Donis wrap and a tall medical boot. IMPRESSION: The patient is 3 weeks status post TAR hardware removal, stable. PLAN: She is going to go touch-down weight bearing in a medical boot. She can take it off at night for sleep and non-weight bearing showers. Next week she is going to just start some gentle ankle range of motion on her own. She will follow up with Dr. Villavicencio's PA at 6 weeks post-op for right non-weight bearing ankle, cyaxh-toit-l-rays , with progression to weight bearing in the boot and PT. She is in agreement. The patient was seen and examined with Judi Villavicencio M.D. Dictated by Gem Amos PA-C, for Judi Villavicencio M.D. Not available 06/20/2019 18:01:59 07/12/2019 07/12/2019 DATA: Right non-weight bearing ankle three view x-rays, show that her implant is well-seated. No periprosthetic lucency, fracture, or subsidence. She has a long plate and screw construct on the distal fibula from previous surgeries. IMPRESSION: The patient is 6 weeks status post right TAR, stable. PLAN: The patient is going to progress to full weight bearing in a medical boot. She was fitted for a stirrup brace today. She is going to transition at 8 weeks post-op into the stirrup brace and sneaker and start PT. She was given the PT protocol. She will follow up with Dr. Villavicencio in 6 more weeks for weight bearing TAR protocol x-rays. She is in agreement. Not available 07/15/2019 22:07:50 08/23/2019 08/23/2019 DATA: Right weight bearing TAR protocol x-rays here at [facility] show her implant is intact. No periprosthetic lucency or fracture subsidence. Alignment is excellent. IMPRESSION: 12 weeks status post TAR, stable. PLAN: The patient will discharge the Air-Stirrup brace unless she is doing some gardening and will use it on uneven surfaces for another few months. She feels she can do her own home program with range of motion. She will work on progressively coming off the rolling walker and using a cane for balance and gait training. She will follow up with us with Dr. Villavicencio? erica BARRERA in another three months at six months post-op for TAR weight bearing ankle x-rays. The patient was seen and examined with Dr. Judi Villavicencio. Dictated by Gem Amos PA-C for Dr. Judi Villavicencio. Not available 08/23/2019 20:39:31 11/23/2019 11/23/2019 DATA: Right weight bearing ankle TAR protocol x-rays show that her implant is nicely seated. No periprosthetic lucency, fracture, subsidence. Excellent alignment. Well fixed into bone. IMPRESSION: Patient now 6 months status post above surgery, stable. PLAN: The patient is going to continue activities as tolerated. Follow up at the one year post-op appointment with right weight bearing TAR protocol x-rays with Dr. Villavicencio. She is in agreement. The patient completed the COVID-19 screening handout and was deemed healthy to move forward with this appointment. This visit is a [id number] visit during the COVID-19 pandemic. Based on my clinical judgment, I felt that this visit could not be provided safely and appropriately via TeleHealth. Based on available information prior to presentation, the patient had a high risk of significant worsening and potential functional impairment affecting ADLs if the visit was not completed today. The patient was seen in the office after following PPE use, Workforce Safety, Patient Safety and Infection Control protocols for all services provided today in accordance with [facility] and CDC Guidelines. Not available 11/24/2019 21:13:26 04/27/2022 04/27/2022 ASSESSMENT Three years status post Karlene-Talaris replacement, doing well. PLAN Mendy are both very pleased with her recovery so far. We are going to see her back again in 2 more years for repeat weightbearing x-rays of the right ankle. [id number] Not available 04/28/2022 01:34:41 Plan of Treatment Reminders Order Date Submit Date Provider Last Modified By Organization Details Last Modified Time Details Appointments None recorded. Lab None recorded. Referral physical therapist referral - s/p Total Ankle Replacement Start Physical Therapy at 6 weeks post-opWeek 6: (all NWB at this time) -Stationary cycling in sneaker -Edema control -Scar mobilizatio n -Pain management with modalities as needed -ROM of ankle goal is DF 10 degrees, PF 30 degrees - functional ROM (patient will not get too much more than had prior to surgery) -NWB strengtheni ng of entire lower, hip ext/gluts -WBAT in tall walker boot take off at night for sleep, NWB showers and NWB PTWeek 8: -Continue with above exercises goal is to establish functional ankle ROM -Add NWB ankle strengtheni ng exercises manual resistance and theraband, starting with light resistance and progressing as tolerated -Can begin swimming program - can start gentle water walking in chest-deep water only -Wean out of boot into stirrup brace and sneaker weaning process can take 3-5 days -Stationary cycling continued -Start weight-bear ing exercise always with use of stirrup ankle brace & always bilateral support (no single limb balancing activity) -Bilateral squats -Bilateral heel raises in available rangeWeek 12: -Begin progressing patient to home exercise program in anticipatio n for discharge about week 14 as able - can work some balancing one leg as tolerated -Discontinu e molded ankle brace 2019 020 [email or web address] Not available 0 11:20:43 Procedures None recorded. Surgeries None recorded. Imaging None recorded. Medication Orders None recorded. Patient TargetsNo targets recorded. Patient InstructionsNo instructions recorded. Reason for Referral Physical Therapist Referral for Pain of right ankle joint s/p Total Ankle ReplacementStart Physical Therapy at 6 weeks post-opWeek 6: (all NWB at this time) -Stationary cycling in sneaker -Edema control -Scar mobilization -Pain management with modalities as needed -ROM of ankle goal is DF 10 degrees, PF 30 degrees - functional ROM (patient will not get too much more than had prior to surgery) -NWB strengthening of entire lower, hip ext/gluts -WBAT in tall walker boot take off at night for sleep, NWB showers and NWB PTWeek 8: -Continue with above exercises goal is to establish functional ankle ROM -Add NWB ankle strengthening exercises manual resistance and theraband, starting with light resistance and progressing as tolerated -Can begin swimming program - can start gentle water walking in chest-deep water only -Wean out of boot into stirrup brace and sneaker weaning process can take 3-5 days -Stationary cycling continued -Start weight- bearing exercise always with use of stirrup ankle brace & always bilateral support (no single limb balancing activity) -Bilateral squats -Bilateral heel raises in available rangeWeek 12: -Begin progressing patient to home exercise program in anticipation for discharge about week 14 as able - can work some balancing one leg as tolerated -Discontinue molded ankle brace Referring Physician: Gem Amos, Physician Building Services Engineer, Encounter Date: 07/12/2019 Results Created Date Observation Date Name Description Value Unit Range Abnormal Flag Note LastModifiedBy Organization Detail LastModifiedTime 06/01/20 19 06/01/2019 PT/IN R protime 22.1 sec 9.8-12 .3 high Not Available [facility] (Lab) [address] [facility], [place], [address], 06/01/2019 14:02:48 06/01/20 19 06/01/2019 PT/IN R intl normalized ratio 1.9 0.9-1. 1 high Not Available [facility] (Lab) [address] [place], [address], 06/01/2019 14:02:48 06/01/20 19 06/01/2019 PT/IN R protime 17.8 sec 9.8-12 .3 high Not Available [facility] (Lab) [address] [facility], [place], [address], 06/01/2019 23:24:26 06/01/20 19 06/01/2019 PT/IN R intl normalized ratio 1.6 0.9-1. 1 high Not Available [facility] (Lab) [address] [facility], [place], [address], 06/01/2019 23:24:26 06/01/20 19 06/01/2019 surgi elder patho logy study surgical specimens Case No :[id number] Patie nt: KITTY WOLF Physi noe: Judi Boyce M.D. [facility] Rec: [id number] : 09/09 Loc: [address] [place] [address]# [id number] Age/S ex: 63/F Proc Date: 06/01 Recd Date: 06/04 CLINI ELDER HISTO RY:Ri ght ankle post traum atic arthr itis. Tissu e Sourc e: 1. Ankle , NOS - RIGHT ANKLE BONE ----- ----- ----- ----- ----- ----- ----- ----- ----- ----- ----- ----- ----- ----- ----- ----- ----- ----- -- FINAL DIAGN OSIS Righ t ankle : Fragm ent of degen erati ve carti clare and focal synov ium with mild chron ic infla mmati on, rare small lymph oid aggre bonner , and bone seque stra. Repre sente d fragm ent of bone with focal osteo necro sis, remod eling , medul marcelo fibro sis, chron ic lymph oplas macyt ic infla mmati on (see note) , and focal oli stero l granu eliazar . Note: No acute osteo myeli tis is seen. The chron ic lymph oplas macyt ic infla mmati on october repre sent chron ic osteo myeli tis verse chron ic react annette infla mmato ry pena es to necro sis. Clini elder corre latio n is davidleonardo selena. ----- ----- ----- ----- ----- ----- ----- ----- ----- ----- ----- ----- ----- ----- ----- ----- ----- ----- -- GROSS DESCR IPTIO N The speci men is recei bianka fresh , label ed with the patie nt's name and righ t ankle bone and tissu e . It consi sts of multi ple fragm ents of bone, 3 bone fragm ents measu ring 4.5 x 3.9 x 1.3 cm. in aggre gate. The bones are parti ally surfa elida by a rough ened appea ring carti clare and have yello w, fatty cut surfa aaron. Attac hed to the bone is a small amoun t of pink godoy, unrem arkab le soft tissu e. Repre senta tive soft tissu es are submi tted in casse tte #1. Repre senta tive bone is submi tted in casse tte #2 for decal cific ation . Nori steinberg ___(E lectr donnie steinberg)___ _ ROHAN Glynn, JIHAPaula 06/08 ----- ----- ----- ----- ----- ----- ----- ----- ----- ----- ----- ----- ----- ----- ----- ----- ----- ----- -- END OF REPOR T Not Available [facility] (Lab) [address] [place], [address], 06/08/2019 13:14:41 06/02/20 19 06/02/2019 PT/IN R protime 16.1 sec 9.8-12 .3 high Not Available [facility] (Lab) [address] [place], [address], 06/02/2019 05:11:28 06/02/20 19 06/02/2019 PT/IN R intl normalized ratio 1.4 0.9-1. 1 high Not Available [facility] (Lab) [address] [place], [address], 06/02/2019 05:11:28 06/03/20 19 06/03/2019 CBC white blood count 10.14 K/uL 4.0-11 .0 normal Not Available [facility] (Lab) [address] [place], [address], 06/03/2019 09:11:53 06/03/20 19 06/03/2019 CBC red blood count 4.02 M/uL 3.60-5 .30 normal Not Available [facility] (Lab) [address] [place], [address], 06/03/2019 09:11:53 06/03/20 19 06/03/2019 CBC hemoglobin 11.2 g/dL 12.0-1 6.0 low Not Available [facility] (Lab) [address] [place], [address], 06/03/2019 09:11:53 06/03/20 19 06/03/2019 CBC hematocrit 36.0 % 36.0-4 8.0 normal Not Available [facility] (Lab) [address] [place], [address], 06/03/2019 09:11:53 06/03/20 19 06/03/2019 CBC MCV 89.6 fL 80.0-9 8.0 normal Not Available [facility] (Lab) [address] [place], [address], 06/03/2019 09:11:53 06/03/20 19 06/03/2019 CBC MCH 27.9 pg 27.0-3 4.0 normal Not Available [facility] (Lab) [address] [place], [address], 06/03/2019 09:11:53 06/03/20 19 06/03/2019 CBC MCHC 31.1 g/dL 31.0-3 6.0 normal Not Available [facility] (Lab) [address] [place], [address], 06/03/2019 09:11:53 06/03/20 19 06/03/2019 CBC platelet 202 K/uL 150-40 0 normal Not Available [facility] (Lab) [address] [place], [address], 06/03/2019 09:11:53 06/03/20 19 06/03/2019 CBC RDW-CV 15.9 % 11.5-1 4.5 high Not Available [facility] (Lab) [address] [facility], [place], [address], 06/03/2019 09:11:53 06/03/20 19 06/03/2019 CBC nucleated absolute value 0.00 K/uL normal Not Available [facility] (Lab) [address] [place], [address], 06/03/2019 09:11:53 06/03/20 19 06/03/2019 elect rolyt e panel , serum sodium 142 mmol/ L 135-14 5 normal Not Available [facility] (Lab) [address] [place], [address], 06/03/2019 09:29:40 06/03/20 19 06/03/2019 elect rolyt e panel , serum potassium 4.2 mmol/ L 3.5-5. 3 normal Not Available [facility] (Lab) [address] [facility], [place], [address], 06/03/2019 09:29:40 06/03/20 19 06/03/2019 elect rolyt e panel , serum chloride 103 mmol/ L 100-11 2 normal Not Available [facility] (Lab) [address] [facility], [place], [address], 06/03/2019 09:29:40 06/03/20 19 06/03/2019 elect rolyt e panel , serum bicarbonate 34 mmol/ L 21-30 high Not Available [facility] (Lab) [address] [facility], [place], [address], 06/03/2019 09:29:40 06/03/20 19 06/03/2019 creat inine , serum or plasm a creatinine 0.9 mg/dL 0.0-1. 3 normal Not Available [facility] (Lab) [address] [facility], [place], [address], 06/03/2019 09:29:43 06/03/20 19 06/03/2019 magne sium, serum or plasm a magnesium 1.7 mg/dL 1.6-2. 6 normal Not Available [facility] (Lab) [address] [facility], [place], [address], 06/03/2019 09:29:44 06/03/20 19 06/03/2019 PT/IN R protime 13.1 sec 9.8-12 .3 high Not Available [facility] (Lab) [address] [facility], [place], [address], 06/03/2019 09:34:38 06/03/20 19 06/03/2019 PT/IN R intl normalized ratio 1.2 0.9-1. 1 high Not Available [facility] (Lab) [address] [facility], [place], [address], 06/03/2019 09:34:38 06/03/20 19 06/03/2019 activ ated parti al throm bopla stin time, coagu latio n assay , blood PTT 33.1 sec 26.3-3 4.8 normal Not Available [facility] (Lab) [address] [facility], [place], [address], 06/03/2019 09:34:42 06/04/20 19 06/04/2019 PT/IN R protime 13.3 sec 9.8-12 .3 high Not Available [facility] (Lab) [address] [facility], [place], [address], 06/04/2019 09:44:18 06/04/20 19 06/04/2019 PT/IN R intl normalized ratio 1.2 0.9-1. 1 high Not Available [facility] (Lab) [address] [facility], [place], [address], 06/04/2019 09:44:18 06/04/20 19 06/04/2019 CBC white blood count 9.62 K/uL 4.0-11 .0 normal Not Available [facility] (Lab) [address] [facility], [place], [address], 06/04/2019 10:09:01 06/04/20 19 06/04/2019 CBC red blood count 3.57 M/uL 3.60-5 .30 low Not Available [facility] (Lab) [address] [place], [address], 06/04/2019 10:09:01 06/04/20 19 06/04/2019 CBC hemoglobin 10.0 g/dL 12.0-1 6.0 low Not Available [facility] (Lab) [address] [place], [address], 06/04/2019 10:09:01 06/04/20 19 06/04/2019 CBC hematocrit 32.4 % 36.0-4 8.0 low Not Available [facility] (Lab) [address] [place], [address], 06/04/2019 10:09:01 06/04/20 19 06/04/2019 CBC MCV 90.8 fL 80.0-9 8.0 normal Not Available [facility] (Lab) [address] [place], [address], 06/04/2019 10:09:01 06/04/20 19 06/04/2019 CBC MCH 28.0 pg 27.0-3 4.0 normal Not Available [facility] (Lab) [address] [place], [address], 06/04/2019 10:09:01 06/04/20 19 06/04/2019 CBC MCHC 30.9 g/dL 31.0-3 6.0 low Not Available [facility] (Lab) [address] [place], [address], 06/04/2019 10:09:01 06/04/20 19 06/04/2019 CBC platelet 181 K/uL 150-40 0 normal Not Available [facility] (Lab) [address] [place], [address], 06/04/2019 10:09:01 06/04/20 19 06/04/2019 CBC RDW-CV 15.8 % 11.5-1 4.5 high Not Available [facility] (Lab) [address] [place], [address], 06/04/2019 10:09:01 06/04/20 19 06/04/2019 CBC nucleated absolute value 0.00 K/uL normal Not Available [facility] (Lab) [address] [place], [address], 06/04/2019 10:09:01 06/04/20 19 06/04/2019 activ ated parti al throm bopla stin time, coagu latio n assay , blood PTT 37.9 sec 26.3-3 4.8 high Not Available [facility] (Lab) [address] [place], [address], 06/04/2019 10:17:36 06/04/20 19 06/04/2019 activ ated parti al throm bopla stin time, coagu latio n assay , blood PTT 49.7 sec 26.3-3 4.8 high Speci al Handl ing. Resul t Check ed. Not Available [facility] (Lab) [address] [facility], [place], [address], 06/04/2019 20:30:11 06/05/20 19 06/05/2019 activ ated parti al throm bopla stin time, coagu latio n assay , blood PTT 55.2 sec 26.3-3 4.8 high Not Available [facility] (Lab) [address] [facility], [place], [address], 06/05/2019 02:36:46 06/05/20 19 06/05/2019 CBC white blood count 7.25 K/uL 4.0-11 .0 normal Not Available [facility] (Lab) [address] [place], [address], 06/05/2019 06:04:49 06/05/2006/05/2019 CBC red blood count 3.33 M/uL 3.60-5 .30 low Not Available [facility] (Lab) [address] [place], [address], 06/05/2019 06:04:49 06/05/20 19 06/05/2019 CBC hemoglobin 9.2 g/dL 12.0-1 6.0 low Not Available [facility] (Lab) [address] [place], [address], 06/05/2019 06:04:49 06/05/20 19 06/05/2019 CBC hematocrit 30.8 % 36.0-4 8.0 low Not Available [facility] (Lab) [address] [place], [address], 06/05/2019 06:04:49 06/05/20 06/05/2019 CBC MCV 92.5 fL 80.0-9 8.0 normal Not Available [facility] (Lab) [address] [place], [address], 06/05/2019 06:04:49 06/05/20 19 06/05/2019 CBC MCH 27.6 pg 27.0-3 4.0 normal Not Available [facility] (Lab) [address] [place], [address], 06/05/2019 06:04:49 06/05/20 19 06/05/2019 CBC MCHC 29.9 g/dL 31.0-3 6.0 low Not Available [facility] (Lab) [address] [place] [address], [address], 06/05/2019 06:04:49 06/05/2006/05/2019 CBC platelet 164 K/uL 150-40 0 normal Not Available [facility] (Lab) [address] [place], [address], 06/05/2019 06:04:49 06/05/2006/05/2019 CBC RDW-CV 15.8 % 11.5-1 4.5 high Not Available [facility] (Lab) [address] [place] [address], [address], 06/05/2019 06:04:49 06/05/2006/05/2019 CBC nucleated absolute value 0.00 K/uL normal Not Available [facility] (Lab) [address] [place], [address], 06/05/2019 06:04:49 06/05/2006/05/2019 PT/IN R protime 13.9 sec 9.8-12 .3 high Not Available [facility] (Lab) [address] [place], [address], 06/05/2019 06:20:27 06/05/2006/05/2019 PT/IN R intl normalized ratio 1.2 0.9-1. 1 high Not Available [facility] (Lab) [address] [facility], [place], [address], 06/05/2019 06:20:27 06/05/20 19 06/05/2019 potas sium, serum potassium 4.4 mmol/ L 3.5-5. 3 normal Not Available [facility] (Lab) [address] [place], [address], 06/05/2019 06:49:17 06/05/20 19 06/05/2019 bun (bloo d urea nitro gen), serum or plasm a BUN 10 mg/dL 6-20 normal Not Available [facility] (Lab) [address] [place], [address], 06/05/2019 06:49:20 06/05/20 19 06/05/2019 creat inine , serum or plasm a creatinine 0.6 mg/dL 0.0-1. 3 normal Not Available [facility] (Lab) [address] [place], [address], 06/05/2019 06:49:21 06/05/20 19 06/05/2019 magne sium, serum or plasm a magnesium 1.8 mg/dL 1.6-2. 6 normal Not Available [facility] (Lab) [address] [place], [address], 06/05/2019 06:49:22 06/05/20 19 06/05/2019 activ ated parti al throm bopla stin time, coagu latio n assay , blood PTT 50.8 sec 26.3-3 4.8 high Not Available [facility] (Lab) [address] [place], [address], 06/05/2019 08:43:38 06/05/20 19 06/05/2019 pro BNP (pro B-typ e natri ureti c pepti de), serum or plasm a brain natriuretic peptide 175.5 pg/mL 0.00-1 00.00 high Not Available [facility] (Lab) [address] [facility], [place], [address], 06/05/2019 09:02:31 06/03/20 19 06/02/2019 fluor o C arm or Fin al Report EXAM#: [id number] PROCED URE: OR 0001 FLUORO C ARM OR Jun 02 2019 11:32A M CLINIC AL INDICA TION: INTRAO P VERIFI CATION Intrao perati ve fluoro scopy imagin g shows a tibiot alar arthro desis and partia lly imaged ORIF plate in the distal fibula . NUMBER OF IMAGES : 2 + Dose Report ed by : JENNY CARDOZA M.D. On: Jun 03 2019 6:30P Signed by: JENNY CARDOZA M.D. On: Jun 03 2019 6:30P [address] [facility] [address] [facility] [address], [place], [address], 06/04/2019 07:47:06 07/12/19 20 07/12/2019 XR, ankle http:/ [email or web address] ntegra tionPr ocesso r.aspx ?CMD=O PENSTU DY&ACC ESSION =[id number] [address] [facility] [address], [address], 07/12/2019 11:08:30 08/23/19 20 08/23/2019 XR, ankle http:/ /[email or web address] [email or web address]/I ntegra tionPr ocesso r.aspx ?CMD=O PENSTU DY&ACC ESSION =[id number] [address] & Shoulder [address], [address], 08/23/2019 13:51:37 11/23/19 20 11/23/2019 XR, ankle http:/ /[email or web address] [email or web address]/I ntegra tionPr ocesso r.aspx ?CMD=O AIYANAJaylen DY&ACC ESSION =[id number] [address] [facility] [address], [address], 11/23/2019 15:12:29 Result Notes None recorded. Problems No Known Problems Procedures Surgical History Date Name Laterality Status Provider Name and Address Organization Details Recorded Time 06/01/20 19 Orthopaedic Surgery completed Mackenzie Puente [facility] 07/12/2019 10:37:12 06/06/19 18 Orthopaedic Surgery completed Selene Bell [facility] 12/28/2018 12:10:50 06/06/19 09 Other completed Selene Bell [facility] 12/28/2018 12:11:07 Imaging Results Imaging Date Name Status LastModified by Organiz ation Details LastModified Time 06/02/2019 fluoro C arm or completed [address] [facility] [address] [place], [address], 06/04/2019 07:47:06 07/12/2019 XR, ankle completed [address] Shoulder [address], [address], 07/12/2019 11:08:30 08/23/2019 XR, ankle completed [address] Shoulder [address], [address], 08/23/2019 13:51:37 11/23/2019 XR, ankle completed [address] [facility] [address] [place] [address], [address], 11/23/2019 15:12:29 Procedure Notes None recorded. Medical Equipment None Reported. Allergies No known drug allergies Medications Name Sig Start Date Stop Date Status Note LastModified by Organization Details LastModified Time amantadine HCl 100 mg tablet 12/28 completed Not Available Not Available Not Available amoxicillin 500 mg capsule take 4 tabs po 1 hour prior to dental procedure s s/p total ankle replaceme nt active Not Available Not Available No t Available furosemide 40 mg tablet active Not Available Not Available Not Available levothyroxi ne 137 mcg tablet 04/27 completed Not Available Not Available Not Available atorvastati n 20 mg tablet 12/28 completed Not Available Not Available Not Available sulfasalazi ne 500 mg tablet 12/28 completed Not Available Not Available Not Available amiodarone 200 mg tablet 12/28 completed Not Available Not Available Not Available citalopram 10 mg tablet 04/27 completed Not Available Not Available Not Available prednisone 20 mg tablet 04/27 completed Not Available Not Available Not Available clonazepam 0.5 mg tablet 2021 active Not Available Not Available Not Avai lable doxycycline hyclate 50 mg capsule active Not Available Not Available N ot Available sertraline 100 mg tablet active Not Available Not Available Not Available sulfasalazi ne 500 mg tablet,angel yed release active Not Available Not Available Not Available warfarin 2.5 mg tablet 11/22 completed Not Available Not Available Not Available sulfamethox azole 800 mg-trimetho prim 160 mg tablet active Not Available Not Available Not Available leflunomide 20 mg tablet active Not Available Not Available Not Available warfarin 3 mg tablet active Not Available Not Available No t Available levothyroxi ne 100 mcg tablet active Not Available Not Available Not Available hydromorpho ne 2 mg tablet 12/28 completed Not Available Not Available Not Available benzonatate 100 mg capsule 04/27 completed Not Available Not Available Not Available cephalexin 500 mg capsule 04/27 completed Not Available Not Available Not Available simvastatin 20 mg tablet active Not Available Not Available Not Available erythromyci n 5 mg/gram (0.5 %) eye ointment active Not Available Not Available Not Available levothyroxi ne 125 mcg tablet 04/27 completed Not Available Not Available Not Available metoprolol tartrate 50 mg tablet 04/27 completed Not Available Not Available Not Available gabapentin 300 mg capsule active Not Available Not Available Not Available sertraline 50 mg tablet 12/28 completed Not Available Not Available Not Available tobramycin 0.3 %-dexametha sone 0.1 % eye drops,suspe nsion active Not Available Not Available Not Available oxycodone 5 mg tablet take 1-2 tabs po Q4-6 hours prn post-op pain 07/12 completed Not Available Not Available Not Available enoxaparin 80 mg/0.8 mL subcutaneou s syringe active Not Available Not Available No t Available Jantoven 1 mg tablet 12/28 completed Not Available Not Available Not Available Jantoven 4 mg tablet 12/28 completed Not Available Not Available Not Available Jantoven 5 mg tablet 12/28 completed Not Available Not Available Not Available escitalopra m 5 mg tablet active Not Available Not Available Not Available metoprolol tartrate 25 mg tablet active Not Available Not Available No t Available Coumadin 11/22 completed Not Available Not Available Not Available Humira Pen 40 mg/0.8 mL subcutaneou s kit 04/27 completed Not Available Not Available Not Available Austedo 9 mg tablet 04/27 completed Not Available Not Available Not Available Austedo 12 mg tablet 04/27 completed Not Available Not Available Not Available Austedo 6 mg tablet 04/27 completed Not Available Not Available Not Available Humira(CF) Pen 40 mg/0.4 mL subcutaneou s kit active Not Available Not Available Not Available Vitals Date Recorded Body height Provider Name an d Address Organization Details Last Updated DateTime 04/27/2022 160.02 cm Benjamín Matamoros [facility] 04/27/2022 11:31:10 Date Recorded Body height Body mass index (BMI) Body weight Provider Name and Address Organization Details Last Updated DateTime 06/19/2019 160.02 cm 35.4 kg/m2 21066.47 g [facility] 06/19/2019 11:32:55 Date Recorded Body height Body mass index (BMI) Body weight Provider Name and Address Organization Details Last Updated DateTime 07/12/2019 160.02 cm 35.4 kg/m2 10513.47 g Mackenzie Cindi [facility] 07/12/2019 10:36:18 Date Recorded Body height Body mass index (BMI) Body weight Provider Name and Address Organization Details Last Updated DateTime 08/23/2019 160.02 cm 35.4 kg/m2 01749.47 g Elenita Morillo [facility] 08/23/2019 12:53:08 Date Recorded Body height Provider Name an d Address Organization Details Last Updated DateTime 11/23/2019 160.02 cm Elenita Morillo [facility] 11/23/2019 10:56:42 Social History Question Answer Notes LastModified by Organizat ion Details LastModified Time Tobacco Smoking Status Never Smoker Selene cantu [facility] 12/28/2018 12:09:33 Do You Have An Advance Directive? No Information not available 02/19/2019 What Is Your Level Of Alcohol Consumption? Occasional 3/wk Information not available 12/28/2018 Auto Related Injury? No Information not available 02/19/2019 What Is Your Level Of Caffeine Consumption? Occasional Information not available 02/19/2019 Have You Had Cortisone? Yes Information not available 02/19/2019 Date Of Injury/Duration Of Injury (weeks, Months, Years) 1+ Year- Started In November 2017 Information not available 02/19/2019 Is This Condition/probl em Affecting Your Ability To Exercise Or Perform Activities Of Daily Living? Yes Information not available 12/28/2018 Do You Wear Custom-made Orthotics? No Information not available 12/28/2018 Have You Ever Had Problems With Healing A Wound? Have You Ever Been Told You Are A Slow Healer? No Information not available 12/28/2018 Work Related Injury? No Information not available 12/28/2018 Sex: Unknown Functional Status None recorded. Mental Status None recorded. Family History Relationship Description Onset Age of this Age Resolved Age Notes LastModified by Organization Details LastModified Time Father Cerebrovascu lar accident 78 Not available 12:09:12 Medical History Condition Response Blood Clots / Phlebitis N Heart Problems N HIV or AIDS N Depression or Anxiety N High Blood Pressure N Irregular Heartbeat Y MRSA N Any Other Significant Medical Issues N Emphysema / Chronic Bronchitis N Reaction to General/Local Anesthesia N Weight Gain / Loss N Hepatitis / Jaundice N Kidney / Bladder Infections N Diabetes N Bleeding Disorder N Hearing Loss N Angina, Heart Failure or Attack N Seizures / Epilepsy N Night Sweats N Osteoarthritis / Rheumatoid arthritis / Other Y Cancer N Stroke Y Chemical Dependency / Alcoholism N Ulcer / Stomach Bleeding / Indigestion N Visual Loss or Glaucoma N Thyroid Disorder Y Psoriasis / Skin Rash N Heart Disease Y Pulmonary Embolism N Asthma / Shortness of Breath / Sleep Sports Broadcaster ea (please specify) N Gynecological HistoryNo gynecological history recorded. Obstetrics History GPAL:G 0 P 0 0 0 0 Immunizations Vaccine Type Date Status Note Provider Nam e and Address Organization Details Recorded Time Influenza, split virus, quadrivalent, preservative 0 completed Elenita Morillo [facility] 08/23/2019 12:53:24 Past Encounters Encounter ID Performer Location Encounter Start Date Encounter Closed Date Diagnosis/Indication Diagnosis SNOMED-CT Code Diagnosis ICD10 Code Diagnosis Note [id number] HOLLY LA [facility] Office [address] [place] [address] [id number] 1 12/28/2018 11:32:17 12/28/2018 12:52:25 Osteoarthritis 256886455 M19.171 Arthralgia of the ankle and/or foot 595090782 M25.571 [id number] HOLLY [place] [facility] Office [address] [place] [address] [id number] 1 02/19/2019 12:07:43 02/19/2019 12:45:30 Osteoarthritis 717823883 M19.171 Arthralgia of the ankle and/or foot 403212236 M25.571 [id number] JUDI VILLAVICENCIO MD [facility] Office [address] [phone] 7 03/22/2019 10:48:46 03/22/2019 12:59:40 Osteoarthritis 096162025 M19.171 [id number] HO[place] [facility] Office [address] [place] [address] 57693-492 1 05/21/2019 08:36:55 05/21/2019 09:15:10 Osteoarthritis 350909645 M19.171 Pain of ri ght ankle joint 6616690638 4138750 M25.571 [id number] JUDI VILLAVICENCIO MD [facility] Office [address] [place] [address] [id number] 1 06/19/2019 11:24:37 06/19/2019 12:31:41 Post traumatic osteoarthritis 223502760 M19.171 [id number] HOLLY LA [facility] Office [address] [place] [address] [id number] 1 07/12/2019 10:07:32 07/12/2019 11:20:02 Pain of right ankle joint 4676919123 3340614 M25.571 Post traum atic osteoarthritis 221265548 M19.171 [id number] JUDI VILLAVICENCIO MD [facility] Office [address] [place] [address] [id number] 1 08/23/2019 12:13:29 08/27/2019 13:47:52 [id number] HOLLY LA [facility] Office [address] [place] [address] [id number] 1 11/23/2019 10:12:23 11/23/2019 11:27:31 Osteoarthritis 172594571 M19.171 Ankle pain 979381516 M25 .881 [id number] JUDI VILLAVICENCIO MD [facility] Office [address] [place] [address] [id number] 1 04/27/2022 11:03:58 04/27/2022 12:18:40 Osteoarthritis 449046151 M19.171 Health Concerns Section Related Observation LastModified by Organization Detai ls LastModified Time None Recorded Concern Status LastModified by Organization Details LastModified Time None Recorded Advance Directives Directive N: Payers Encounter Date Sequence Insurance Name Policy Number Policy Pearce Covered Member ID Pearce Member ID Guarantor Name 06/19/2019 1 MEDICARE [place]: [facility] Mendy Perrini [id number] 2 Mendy Dachowski 06/19/2019 2 [place] [employer] [place] Miguel Nova Jr [id number] Mendy Dachowkendrick 07/12/2019 1 [place]: [facility] Mendy Gómezski [id number] 2 Mendy Dachowski 07/12/2019 2 [place] Miguel Nova Jr [id number] Mendy Dacradha 08/23/2019 1 MEDICARE B-[place]: [facility] Mendy Perrini [id number] Mendy Dachowski 08/23/2019 2 [place] Miguel Nova Jr [id number] Mendy Nova 11/23/2019 1 MEDICARE B-[place]: NATIONAL GOVERNMENT SERVICES Mendy Nova [id number] 2 Mendy Nova 11/23/2019 2 [facility]: [employer]EE [employer] Miguel Nova [id number] Mendy Nova 04/27/2022 1 MEDICARE B-[place]: [facility] Mendy Nova [id number] 2 Mendy Nova 04/27/2022 2 [facility] [employer] Miguel Nova [id number] Mendy Nova Notes Date Note Type Note Provider Name and Address Organization Details Recorded Time 06/19/2019 text/html HX: Mendy is here for her first post-op visit status post right total ankle replacement hardware removal. She is doing well and is back home at this time. She has been non-weight bearing in a post-op splint. She is back on her Coumadin and taking oxycodone as-needed. We did review her intraoperative photos today in clinic from [facility]. JUDI VILLAVICENCIO MD [address] [place] [address], [phone], [facility] 06/21/2019 07:59:46 07/12/2019 text/html HX: Mendy returns to clinic, now 6 weeks status post right TAR, medial mal screw removal. She is doing well, with no major complaints. She can stop the aspirin on our part at this time. HOLLY LA [address] [place] [address], [phone], [facility] 07/16/2019 07:56:53 08/23/2019 text/html HISTORY: Radha mejias returns to clinic. She is 12 weeks status post right total ankle replacement and removal of hardware. She is doing great. She has no pain whatsoever. She is very pleased with her post-op results. She has been getting home physical therapy. She is using a rolling walker per PT? s recommendation but feels she can go without. JUDI VILLAVICENCIO MD [address] [place] [address], [phone], [facility] 08/24/2019 11:41:35 11/23/2019 text/html HX: Mendy returns to clinic, now 6 months status post right total ankle replacement. She is doing great. She has absolutely no pain. She is pleased with her post-op recovery. She is walking nicely without assistive device. She does report that both legs have started hurting her, which has been a problem for a while, but progressively worsening. I did direct her to her primary care and possibly Physiatry. HOLLY LA [address] [place] [address], [phone], [facility] 11/26/2019 07:42:45 04/27/2022 text/html Mendy return s to clinic after a 2-year absence. She is 3 years out from a right Karlene-Talaris total ankle replacement for posttraumatic arthritis. We last saw her in the summer of 2019 just when COVID hit. She decided to finally get this checked out. She is very pleased. Her preoperative pain is relieved. She reports 0/10 pain. She occasionally wears a brace at home. Sometimes she feels like the screws are coming out of her plate. JUDI VILLAVICENCIO MD [address] [place], [phone], [facility] 05/05/2022 20:24:38 OBGyn Episode No OBEpisode recorded.
--- OUTSIDE RECORDS SUMMARY | 2024-07-19 22:01 | XMS_ITS | Encounter Summary ---
Author Organization [facility] Address [address] [place] [address] Care Team Providers Care String Cutter Name Role Phone Rivera Galicia DO Primary Care Provider [phone] Rocael Butts MD Unavailable [phone] Philip Grace MD Unavailable [phone] Encounter Details Date Type Department Care Team (Late st Contact Info) Description 09/06/2018 Scanned Document [facility] Neurology [address] [place] [address] Chantal Cobb MD 35 [facility] 6 [place] [address] Social History Tobacco Use Types Packs/Day Years [...] on filedocumented in this encounter Care Teams String Cutter Relationship Specialty Start Date End Date Rivera Galicia DO [address] [place] [address] PCP - General Internal Medicine 09/20/17 Rocael Butts MD [address] [place] [address] Rheumatology 09/04/18 Philip Grace MD [address] [place] [address] Referring Provider Cardiovascular Disease 09/11/18 documented as of this encounter
--- OUTSIDE RECORDS SUMMARY | 2024-07-19 22:01 | XMS_ITS | Encounter Summary ---
Author Organization [facility] Address [address] [place] [address] Care Team Providers Care Pie Bakery Laborer Name Role Phone Rivera Galicia DO Primary Care Provider [phone] Rocael Butts MD Unavailable [phone] Philip Grace MD Unavailable Encounter Details Date Type Department Care Team (Late st Contact Info) Description 01/20/2018 Scanned Document [facility] Neurology [address] [place] [address] Shawna Brady MD 100 [facility] [address] [place] [phone] Social History Tobacco Use Types Packs/Day Years [...] on filedocumented in this encounter Care Teams Pie Bakery Laborer Relationship Specialty Start Date End Date Rivera Galicia DO [address] [place] [address] PCP - General Internal Medicine 09/20/17 Rocael Butts MD [address] [place] [address] Rheumatology 09/04/18 Philip Grace MD [address] [place] [address] Referring Provider Cardiovascular Disease 09/11/18 documented as of this encounter
--- OUTSIDE RECORDS SUMMARY | 2024-07-19 22:01 | XMS_ITS | Encounter Summary ---
Author Organization [facility] Address [address] [place] [address] Care Team Providers Care Hat Cleaner Name Role Phone Rivera Galicia DO Primary Care Provider [phone] Rocael Butts MD Unavailable [phone] Philip Grace MD Unavailable [phone] Encounter Details Date Type Department Care Team (Late st Contact Info) Description 04/12/2019 Scanned Document [facility] Neurology [address] [place] [phone] Moo Godfrey APRN [address] [place] [address] Social History Tobacco Use Types Packs/Day Years [...] on filedocumented in this encounter Care Teams Hat Cleaner Relationship Specialty Start Date End Date Rivera Galicia DO [address] [place] [address] PCP - General Internal Medicine 09/20/17 Rocael Butts MD [address] [place] [address] Rheumatology 09/04/18 Philip Grace MD [address] [place] [address] Referring Provider Cardiovascular Disease 09/11/18 documented as of this encounter
--- OUTSIDE RECORDS SUMMARY | 2024-07-19 22:01 | XMS_ITS | Encounter Summary ---
Author Organization [facility] Address [address] [place] [address] Care Team Providers Care Manufacturing Operations Manager Name Role Phone Rivera Galicia DO Primary Care Provider [phone] Rocael Butts MD Unavailable [phone] Philip Grace MD Unavailable [phone] Encounter Details Date Type Department Care Team (Late st Contact Info) Description 01/20/2018 Scanned Document [facility] Neurology [address] [place] [address] Shawna Brady MD 100 [facility] 102 [place] [phone] Social History Tobacco Use Types Packs/Day Years [...] on filedocumented in this encounter Care Teams Manufacturing Operations Manager Relationship Specialty Start Date End Date Rivera Galicia DO [address] [place] [address] PCP - General Internal Medicine 09/20/17 Rocael Butts MD [address] [place] [address] Rheumatology 09/04/18 Philip Grace MD [address] [place] [address] Referring Provider Cardiovascular Disease 09/11/18 documented as of this encounter
--- OUTSIDE RECORDS SUMMARY | 2024-07-19 22:01 | XMS_ITS | Encounter Summary ---
Author Organization [facility] Address [address] [place] [address] Care Team Providers Care Cnc Manager Name Role Phone Rivera Galicia DO Primary Care Provider [phone] Rocael Butts MD Unavailable [phone] Philip Grace MD Unavailable [phone] Encounter Details Date Type Department Care Team (Late st Contact Info) Description 10/09/2018 Scanned Document [facility] Neurology [address] [place] [phone] Shawna Brady MD 100 [facility] [address] [place] [phone] Social History Tobacco Use Types Packs/Day Years [...] on filedocumented in this encounter Care Teams Cnc Manager Relationship Specialty Start Date End Date Rivera Galicia DO [address] [place] [address] PCP - General Internal Medicine 09/20/17 Rocael Butts MD [address] [place] [address] Rheumatology 09/04/18 Philip Grace MD [address] [place] [address] Referring Provider Cardiovascular Disease 09/11/18 documented as of this encounter
--- OUTSIDE RECORDS SUMMARY | 2024-07-19 22:01 | XMS_ITS | Encounter Summary ---
Author Organization [facility] Address [address] [place] [address] Care Team Providers Care Fire Control Technician G Name Role Phone Rivera Galicia DO Primary Care Provider Rocael Butts MD Unavailable [phone] Philip Grace MD Unavailable Encounter Details Date Type Department Care Team (Late st Contact Info) Description 01/08/2019 Scanned Document [facility] Neurology [address] [place] [phone] Shawna Brady MD [address] [address] Social History Tobacco Use Types [...] on filedocumented in this encounter Care Teams Fire Control Technician G Relationship Specialty Start Date End Date Rivera Galicia DO [address] [place] [address] PCP - General Internal Medicine 09/20/17 Rocael Butts MD [address] [place] [address] Rheumatology 09/04/18 Philip Grace MD [address] [place] [address] Referring Provider Cardiovascular Disease 09/11/18 documented as of this encounter
--- OUTSIDE RECORDS SUMMARY | 2024-07-19 22:01 | XMS_ITS | Clinical Summary ---
Author Organization [facility] Address [address] [place] [address] Care Team Providers Care Body Designer Name Role Phone Rivera Galicia DO Primary Care Provider [phone] Rocael Butts MD Unavailable [phone] Philip Grace MD Unavailable [phone] Allergies No known active allergies Medications Medication [...] age to complete this topic Care Teams Body Designer Relationship Specialty Start Date End Date Rivera Galicia DO [address] [place] [address] PCP - General Internal Medicine 09/20/17 Rocael Butts MD [address] [place] [address] Rheumatology 09/04/18 Philip Grace MD [address] [place] [address] Referring Provider Cardiovascular Disease 09/11/18
--- OUTSIDE RECORDS SUMMARY | 2024-07-19 22:01 | XMS_ITS | Encounter Summary ---
Author Organization [facility] Address [address] [place] [address] Care Team Providers Care Evening Anchor Name Role Phone Rivera Galicia DO Primary Care Provider [phone] Rocael Butts MD Unavailable Philip Grace MD Unavailable [phone] Encounter Details Date Type Department Care Team (Late st Contact Info) Description 04/02/[address] [facility] Neurology [address] [place] [phone] Moo Godfrey APRN [address] [place] [address] Social History Tobacco Use Types Packs/Day Years [...] on filedocumented in this encounter Care Teams Evening Anchor Relationship Specialty Start Date End Date Rivera Galicia DO [address] [place] [address] PCP - General Internal Medicine 09/20/17 Rocael Butts MD [address] [place] [address] Rheumatology 09/04/18 Philip Grace MD [address] [place] [address] Referring Provider Cardiovascular Disease 09/11/18 documented as of this encounter
--- OUTSIDE RECORDS SUMMARY | 2024-07-19 22:01 | XMS_ITS | Encounter Summary ---
Author Organization [facility] Address [address] [place] [address] Care Team Providers Care Active Directory Administrator Name Role Phone Rivera Galicia DO Primary Care Provider [phone] Rocael Butts MD Unavailable Philip Grace MD Unavailable [phone] Encounter Details Date Type Department Care Team (Late st Contact Info) Description 04/26/2019 Scanned Document [facility] Neurology [address] [phone] Steven Narayanan MD 35 [facility] [address] [place] [address] Social History Tobacco Use Types [...] on filedocumented in this encounter Care Teams Active Directory Administrator Relationship Specialty Start Date End Date Rivera Galicia DO [address] [place] [address] PCP - General Internal Medicine 09/20/17 Rocael Butts MD [address] [place] [address] Rheumatology 09/04/18 Philip Grace MD [address] [place] [address] Referring Provider Cardiovascular Disease 09/11/18 documented as of this encounter
--- OUTSIDE RECORDS SUMMARY | 2024-07-19 22:01 | XMS_ITS | Encounter Summary ---
Author Organization [facility] [place] [facility] Address [address] [place] [address] Care Team Providers Care Classroom Technology Technician Name Role Phone Rivera Galicia DO Primary Care Provider [phone] Rocael Butts MD Unavailable [phone] Philip Grace MD Unavailable [phone] Encounter Details Date Type Department Care Team (Late st Contact Info) Description 04/26/2019 Scanned Document [facility] Neurology [address] [place] [address] Shawna Brady MD 100 [facility] [address] [place] [address] Social History Tobacco Use Types [...] on filedocumented in this encounter Care Teams Classroom Technology Technician Relationship Specialty Start Date End Date Rivera Galicia DO [address] [place] [address] PCP - General Internal Medicine 09/20/17 Rocael Butts MD [address] [place] [address] Rheumatology 09/04/18 Philip Grace MD [address] [place] [address] Referring Provider Cardiovascular Disease 09/11/18 documented as of this encounter
--- OUTSIDE RECORDS SUMMARY | 2024-07-19 22:01 | XMS_ITS | Encounter Summary ---
Author Organization [facility] Address [address] [place] [address] Care Team Providers Care Graphic Design Manager Name Role Phone Provider, Unknown Primary Care Provider [phone] Rivera Galicia DO Primary Care Provider [phone] Rocael Butts MD Unavailable [phone] Philip Grace MD Unavailable [phone] Encounter Details Date Type Department Care Team (Late st Contact Info) Description 03/28/2017 Scanned Document [facility] Neuroscience [facility] [address] [place] [phone] Clara Izquierdo MD [address] [place] [address] Social History Tobacco Use Types Packs/Day Years [...] on filedocumented in this encounter Care Teams Graphic Design Manager Relationship Specialty Start Date End Date Provider, Unknown 1 DO NOT USE THIS RECORD PCP - General 02/03/16 09/19/17 Rivera Galicia DO [address] [place] [address] PCP - General Internal Medicine 09/20/17 Rocael Butts MD [address] [place] [address] Rheumatology 09/04/18 Philip Grace MD [address] [place] [address] Referring Provider Cardiovascular Disease 09/11/18 documented as of this encounter
--- OUTSIDE RECORDS SUMMARY | 2024-07-19 22:01 | XMS_ITS | Encounter Summary ---
Author Organization [facility] Address [address] [place] [address] Care Team Providers Care Window Shade Ring Sewer Name Role Phone Rivera Galicia DO Primary Care Provider [phone] Rocael Butts MD Unavailable [phone] Philip Grace MD Unavailable [phone] Encounter Details Date Type Department Care Team (Late st Contact Info) Description 04/21/2018 Scanned Document [facility] Neurology [address] [place] [phone] Shawna Brady MD [address] [facility] [address] [place] [phone] Social History Tobacco Use Types Packs/Day Years [...] on filedocumented in this encounter Care Teams Window Shade Ring Sewer Relationship Specialty Start Date End Date Rivera Galicia DO [address] [place] [address] PCP - General Internal Medicine 09/20/17 Rocael Butts MD [address] [place] [address] Rheumatology 09/04/18 Philip Grace MD [address] [place] [address] Referring Provider Cardiovascular Disease 09/11/18 documented as of this encounter
--- OUTSIDE RECORDS SUMMARY | 2024-07-19 22:01 | XMS_ITS | Encounter Summary ---
Author Organization [facility] Address [address] [place] [address] Care Team Providers Care Customer Service And Sales Consultant Name Role Phone Rivera Galicia DO Primary Care Provider [phone] Rocael Butts MD Unavailable [phone] Philip Grcae MD Unavailable [phone] Encounter Details Date Type Department Care Team (Late st Contact Info) Description 05/18/2019 Scanned Document [facility] Neurology [address] [address] Steven Narayanan MD [address] [facility] [address] [place], [place] [phone] Social History Tobacco Use Types Packs/Day Years [...] on filedocumented in this encounter Care Teams Customer Service And Sales Consultant Relationship Specialty Start Date End Date Rivera Galicia DO [address] [place] [address] PCP - General Internal Medicine 09/20/17 Rocael Butts MD [address] [place] [address] Rheumatology 09/04/18 Philip Grace MD [address] [place] [address] Referring Provider Cardiovascular Disease 09/11/18 documented as of this encounter
--- OUTSIDE RECORDS SUMMARY | 2024-07-19 22:01 | XMS_ITS | Clinical Summary ---
Author Organization [facility] Address [address] [place] [address] Phone Care Team Providers Care Automotive Technology Instructor Name Role Phone Shorty Chong DO Primary Care Provider [phone] Encounters Date Type Department Care Team Description 04/20/2024 10:00 AM EST - 04/20/2024 11:59 PM EST Hospital Encounter [facility] Bone Density [address] [place] [address] Postmenopausal Discharge Disposition: Home or Self Care from Last 3 Months Social History Tobacco Use Types Packs/Day Years Used Date Smoking Tobacco: Former Smokeless Tobacco: Never Alcohol Use Standard Drinks/Week Comments Yes 0 (1 standard drink = 0.6 oz pur e alcohol) Comments Unknown Sex and Gender Information Value Date Recorded Sex Assigned at Female 07/18/2024 9:31 AM EST Legal Sex Female 2:44 PM EST Gender Identity Female 07/18/2024 9:31 AM EST Sexual Orientation Choose not to disclose 2024 9:31 AM EST Obstetrics History Last Filed Vital Signs Vital [...] 12/30/2022 1:07 PM EDT Plan of Treatment Upcoming Encounters Date Type Department Care Team (Late st Contact Info) Description 08/27/2024 10:00 AM EDT [facility]ointment [facility] [address] [address] Health Maintenance Due Date Last Done Comments Zoster Vaccines (1 of 2) 09/10/2003 Pneumococcal Vaccine: 50+ Years (2 of 2 - PCV) 12/23/2021 12/23/2020 Cholesterol Screening (Lipid Panel) 05/05/2022 Colorectal Cancer Screening: Colonoscopy 05/05/2022 Depression Screening 05/05/2022 Falls Risk Assessment 05/05/2022 Medicare Annual Wellness Visit 05/05/2022 Social Influencers of Health Screening 05/05/2022 COVID-19 Vaccine ( season) 2024 06/15/2023, 05/19/2022, 10/23/2021, Additional history exists Influenza Vaccine (#1) 2024 , 03/02/2022, 02/15/2022, Additional history exists Breast Cancer [...] patient's age to complete this topic Meningococcal B Vacine Aged Out No lo nger eligible based on patient's age to complete this topic RSV Immunization Patients Under 20 months Aged Out No longer eligible based on patient's age to complete this topic Varicella Vaccines Aged Out No longer eligible based on patient's age to complete this topic Procedures Procedure Name Priority Date/Time Associated Diagnosis Comments BD BONE DENSITY DXA AXIAL SKELETON Routine 04/20/2024 10:58 AM EST Postmenopausal CRISTAL SCREENING DIGITAL Routine 08/25/2023 11:02 AM EDT [...] probability of hip fracture of 4.7%. Code 14700 -------- FINAL REPORT -------- Dictated By: Mathew Joseph Dictated Date: 04/20/2024 11:03 ET Assigned Physician: Mathew Joseph Reviewed and Electronically Signed By: Mathew Joseph Signed Date: 04/20/2024 11:05 ET Workstation ID: [id number] Transcribed By: Self Edit Transcribed Date: 04/20/2024 [...] density of the femurs bilaterally is 0.866 gm/lc7gopvw is 86% of that of young normals [...] probability of hip fracture of 4.7%. Code 01305 -------- FINAL REPORT -------- Dictated By: Mathew Joseph Dictated Date: 04/20/2024 11:03 ET Assigned Physician: Mathew Joseph Reviewed and Electronically Signed By: Mathew Joseph Signed Date: 04/20/2024 11:05 ET Workstation ID: [id number] Transcribed By: Self Edit Transcribed Date: 04/20/2024 11:04 ET us Shorty Chong DO IMG DXA PROCEDURES Final Resu lt * CRISTAL SCREENING DIGITAL (08/25/2023 11:02 AM EDT) Anatomical Region Laterality Modality Mammography 08/25/2023 9:12 AM EDT Narrative 08/25/2023 11:02 AM EDT [facility] Diagnostic Imaging Department [address] [place] [address] Patient: ??MISAEL NOVA ?/Age/Sex: 1955 - 67 - F Unit#: ??[id number] ? Location/Status: ??SPDIMAM/REG CLI ? Mnemonic/Ordering Site: ??DIGSC/SPMAM Ordering Physician: ??SHORTY CHONG MD Cristal Screening Digital - 08/25/23 - 930 Report Status:Signed EXAM: Cristal Screening Digital EXAM DATE AND TIME: 08/25/2023 9:32 AM HISTORY: ??Screening. COMPARISON: ??2/11/19, 05/26/16, 05/09/15 TECHNIQUE: Bilateral digital breast tomosynthesis was performed in the CC and MLO projections. Computer aided detection with ReviewZAP 3D 3.1 was employed. TISSUE DENSITY: a. [...] by: ??ALENA ROSAS MD Dic Date/Time: ??08/25/23 1102 Sign date/Time: ??08/25/23 1102 Procedure Note Alena Rosas MD - 01/23/2024 [facility] Diagnostic Imaging Department [address] [place] [address] Patient: MISAEL NOVA D.O.B./Age/Sex: 1955 - 67 - F Unit#: [id number] Location/Status: SPDIMAM/REG CLI Mnemonic/Ordering Site: [facility] Ordering Physician: SHORTY CHONG MD Cristal Screening Digital - 08/25/23 - 0931 Report Status:Signed EXAM: [facility] Screening Digital EXAM DATE AND TIME: 08/25/2023 9:32 AM HISTORY: Screening. COMPARISON: 07/17/18, 05/26/16, 05/09/15 TECHNIQUE: Bilateral digital breast tomosynthesis was performed in the CCand MLO projections. Computer aided detection with ReviewZAP 3D 3.1was employed. TISSUE DENSITY: a. The [...] 1102 Shorty Chong DO IMG BI PROCEDURES Final Resul t from Last 3 Months or Most Recently Relevant to Health Maintenance Insurance MEDICARE [facility] Care Teams Automotive Technology Instructor Relationship Specialty Start Date End Date Shorty Chong DO [address] [place] [phone] PCP - General 08/20/04
--- OUTSIDE RECORDS SUMMARY | 2024-07-19 22:01 | XMS_ITS | Encounter Summary ---
Author Organization [facility] Address [address] [place] [address] Care Team Providers Care Director Of Investigations Name Role Phone Rivera Galicia DO Primary Care Provider [phone] Rocael Butts MD Unavailable [phone] Philip Grace MD Unavailable [phone] Reason for Visit * Reason Onset Date Comments Medication Problem 04/25/2018 Shawna Galindo Encounter Details Date Type Department Care Team (Late st Contact Info) Description 04/25/2018 Telephone [facility] Neurology [place] [phone] Shawna Brady MD [address] [place] [address] Medication Problem (Shawna Brady) Social History [...] I recommend she sees one of the PARTS COUNTER SALESPERSON with one of hte other neurologists as I am out of town and will not have any openings till If she is okay with this please schedule her with PARTS COUNTER SALESPERSON * Telephone Encounter - Emely Sparks MA [...] on filedocumented in this encounter Care Teams Director Of Investigations Relationship Specialty Start Date End Date AidenRivera underwood DO [address] [place] [address] PCP - General Internal Medicine 09/20/17 Rocael Butts MD [address] [place] [address] Rheumatology 09/04/18 Philip Grace MD [address] [place] [address] Referring Provider Cardiovascular Disease 09/11/18 documented as of this encounter
== END ==
LOC: HO.SL 19:30
PROVIDERS: PCP Internal Medicine; Visit Provider Psychiatry & Neurology Neurology
DX: G47.33 Obstructive sleep apnea (adult) (pediatric) (principal)
CPT/HCPCS: 95810

== ENCOUNTER → 2024-07-20 04:25 | Outpatient (BNV) | payer MEDICARE, BC, SELFPAY | PROVIDERS: PCP Internal Medicine; Visit Provider Psychiatry & Neurology Neurology | DX: G47.61 Periodic limb movement disorder (principal) | CPT/HCPCS: 95810 ==

== ENCOUNTER 2024-11-22 09:54 | Outpatient (AMB) | payer MEDICARE, BC, SELFPAY ==
--- NOTE | 2024-11-22 09:57 | MHC.OFFVIS ---
Vital Signs 11/22/24 09:58 Height 5 ft 3 in Weight 210 lb BMI 37.2 BP 120/72 Blood Pressure Location Rt brachial Position Sitting Intake Visit Reasons: 4 mnts f/u appt Intake Note: patient presents for follow up JOVANNY scan 07/24/24 and sleep study 07/19/24 Allergies No Known Allergies Allergy (Verified 11/22/24 10:00) Medication List - Last Reconciled 11/22/24 by Vanessa Paredes MD adalimumab (Humira) 40 mg subcut Q2W citalopram 20 mg PO DAILY clonazepam 0.5 mg PO BEDTIME folic acid 0.8 mg PO DAILY gabapentin 300 mg PO TID levothyroxine 100 mcg PO DAILY meclizine 12.5 mg PO BID-QID PRN metoprolol succinate ER 25 mg PO DAILY simvastatin 20 mg PO DAILY warfarin 3 mg PO DAILY HPI Comments Details: 69y/o Right handed female comes for follow up of tremors.she feels her tremors are worse.'she reports generalized pain . she reports excessive daytime sleepiness. she stopped using CPAP. 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 SInce then she always had some tremors on her right side but worsening for past 2-3 years. The tremors used to be with action but now it is at rest . she had difficulty with tasks with her right hand since her stroke. she also reports some cognitive issues No voice tremors or head tremors. [facility] Medical History Obstructive sleep apnea Obesity Snoring CVA (cerebral vascular accident) Coarse tremors LALITA on CPAP Ulcerative colitis Hypothyroid HTN (hypertension) GERD (gastroesophageal reflux disease) Hyperlipidemia Restless legs syndrome (RLS) Atrial fibrillation Anxiety Asthma PMR (polymyalgia rheumatica) Rheumatoid arthritis Surgical History H/O mitral valve replacement H/O total ankle replacement Social History Household Members: None Housing: House Alcohol intake: former Comment: seldom Patient Tobacco Use Status: Former Tobacco user Physical Exam Vital Signs: Last Vital Signs BP 120/72 11/22/24 09:58 BMI result Body Mass Index 37.2 Const General: cooperative and comfortable Nutritional Appearance: obese Orientation/consciousness: patient oriented x3 Eyes Pupils: Equal, round and reactive pupils present Neuro Other: Speech- dysarthria , slurred Right hand - dysmetria , power 3-4/5 , poor coordination. intermittent right hand rest tremors- she says she is worse in the later part of the day gait- slow General: patient oriented x3, tone normal and moves all extremities Cranial nerves: Yes Facial sensation intact/muscles of mastication intact, Yes Equal, round and reactive pupils present, Yes Bilaterally intact EOM present, Yes Nystagmus not present, Yes Normal facial strength present and Yes Midline tongue present Cognition (Neuro): normal cognition Gait exam (Neuro): Antalgic gait present Assessment & Plan Assessment & Plan (1) Coarse tremors: Comment: s/p CVA - likely some mini ballistic movements ? parkinsonism Code(s): G25.2 - Other specified forms of tremor Category: Medical (2) CVA (cerebral vascular accident): Comment: with residual Right dysmetria and mild weakness Code(s): I63.9 - Cerebral infarction, unspecified Category: Medical Qualifiers: CVA mechanism: other Qualified Code(s): I63.89 - Other cerebral infarction Plan MRI brain reviewed Jovanny scan was normal - reviewed with patient Increase citalopram 20 mg qd continue clonazepam 0.5mg qhs Consider psychotherapy f/u Rheumatology Home sleep test was inconclusive Medications: Changed From citalopram 10 mg PO DAILY To citalopram 20 mg PO DAILY 30 tabs 6RF Coding Level of Care Code Est Pt Level 4 (96752) Complex EM visit Add On G2211 Diagnoses Coarse tremors G25.2 Cerebrovascular accident (CVA) due to other mechanism I63.89 CVA mechanism: other
[2024-11-22 09:58] VITALS: BP 120/72; BMI 37.2
--- OUTSIDE RECORDS SUMMARY | 2024-11-22 10:58 | XMS_ITS | Encounter Summary ---
Author Organization [facility] Address [address] [place] [address] Care Team Providers Care Support Merchandiser Name Role Phone Provider, Unknown Primary Care Provider [phone] Rivera Galicia DO Primary Care Provider [phone] Rocael Butts MD Unavailable [phone] Philip Grace MD Unavailable Unavailable Encounter Details Date Type Department Care Team (Late st Contact Info) Description 03/01/2016 Scanned Document [facility] [address] [place] [phone] Clara Izquierdo MD [address] [place] [address] Social History Tobacco Use Types Packs/Day Years Used Date Smoking Tobacco: Never Assessed Comments Unknown Sex and Gender Information Value Date Recorded Sex Assigned at Not on file Legal Sex Female 6:44 PM EDT Gender Identity Not on file Sexual Orientation Not on file documented as of this encounter Plan of Treatment Not on file documented as of this encounter Visit Diagnoses Not on filedocumented in this encounter Care Teams Support Merchandiser Relationship Specialty Start Date End Date Provider, Unknown 1 DO NOT USE THIS RECORD PCP - General 02/03/16 09/19/17 Rivera Galicia DO [address] [place] [address] PCP - General Internal Medicine 09/20/17 Rocael Butts MD [address] [place] [address] Rheumatology 09/04/18 Philip Grace MD [address] [place] [address] Referring Provider Cardiovascular Disease 09/11/18 documented as of this encounter
== END 2024-11-22 10:28 | disposition home or self-care (01) ==
LOC: HO.HSMS 09:55
PROVIDERS: PCP Internal Medicine; Visit Provider Psychiatry & Neurology Neurology
DX: G25.2 Other specified forms of tremor (principal); I63.89 Other cerebral infarction
CPT/HCPCS: 99214; G2211

== ENCOUNTER → 2024-11-22 09:54 | Outpatient (BNVA) | payer MEDICARE, BC, SELFPAY | PROVIDERS: PCP Internal Medicine; Visit Provider Psychiatry & Neurology Neurology | DX: G25.2 Other specified forms of tremor (principal); I63.89 Other cerebral infarction | CPT/HCPCS: 99212 ==

== ENCOUNTER 2025-05-23 11:01 | Outpatient (AMB) | payer MEDICARE, BC, SELFPAY ==
[2025-05-23 10:59] VITALS: BP 128/82; PULSE 87; O2SAT 98; BMI 36.8
--- NOTE | 2025-05-23 10:59 | MHC.OFFVIS ---
Vital Signs 05/23/25 10:59 Height 5 ft 3 in Weight 207 lb 8 oz BMI 36.8 BP 128/82 Blood Pressure Location Lt brachial Position Sitting Pulse 87 Pulse Source Pulse Oximeter Pulse Oximetry (%) 98 Oxygen Delivery Method Room Air Intake Visit Reasons: 6 mo follow up Intake Note: Follow up Coarse tremors and CVA Medical And Scientific Illustrator Required: No Accompanied by: Self / Same As Patient Allergies No Known Allergies Allergy (Verified 05/23/25 10:59) Medication List - Last Reconciled 05/23/25 by Vanessa Paredes MD adalimumab (Humira) 40 mg subcut Q2W citalopram 20 mg PO DAILY clonazepam 0.5 mg PO BEDTIME folic acid 0.8 mg PO DAILY gabapentin 300 mg PO TID levothyroxine 100 mcg PO DAILY meclizine 12.5 mg PO BID-QID PRN metoprolol succinate ER 25 mg PO DAILY simvastatin 20 mg PO DAILY warfarin 3 mg PO DAILY HPI Comments Details: 69y/o Right handed female comes for follow up of tremors.she is doing better with increase in citalopram dose. she sees rheumatology for pain . she feels her tremors are intermittent - right hand mild ballistic movements History form last visit-she reports excessive daytime sleepiness. she stopped using CPAP. 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 SInce then she always had some tremors on her right side but worsening for past 2-3 years. The tremors used to be with action but now it is at rest . she had difficulty with tasks with her right hand since her stroke. she also reports some cognitive issues No voice tremors or head tremors. [facility] Medical History Obstructive sleep apnea Obesity Snoring CVA (cerebral vascular accident) Coarse tremors LALITA on CPAP Ulcerative colitis Hypothyroid HTN (hypertension) GERD (gastroesophageal reflux disease) Hyperlipidemia Restless legs syndrome (RLS) Atrial fibrillation Anxiety Asthma PMR (polymyalgia rheumatica) Rheumatoid arthritis Surgical History H/O mitral valve replacement H/O total ankle replacement Social History Household Members: None Housing: House Alcohol intake: former Comment: seldom Patient Tobacco Use Status: Former Tobacco user Physical Exam Vital Signs: Last Vital Signs Pulse 87 05/23/25 10:59 BP 128/82 05/23/25 10:59 Pulse Ox 98 05/23/25 10:59 Oxygen Delivery Method Room Air 05/23/25 10:59 BMI result Body Mass Index 36.8 Const General: cooperative and comfortable Nutritional Appearance: obese Orientation/consciousness: patient oriented x3 Eyes Pupils: Equal, round and reactive pupils present Neuro Other: Speech- dysarthria , slurred Right hand - dysmetria , power 3-4/5 , poor coordination. intermittent right hand rest tremors- and some ballistic movements she says she is worse in the later part of the day gait- slow General: patient oriented x3, tone normal and moves all extremities Cranial nerves: Yes Facial sensation intact/muscles of mastication intact, Yes Equal, round and reactive pupils present, Yes Bilaterally intact EOM present, Yes Nystagmus not present, Yes Normal facial strength present and Yes Midline tongue present Cognition (Neuro): normal cognition Gait exam (Neuro): Antalgic gait present Assessment & Plan Assessment & Plan (1) Coarse tremors: Comment: s/p CVA - likely some mini ballistic movements ? parkinsonism Code(s): G25.2 - Other specified forms of tremor Category: Medical (2) CVA (cerebral vascular accident): Comment: with residual Right dysmetria and mild weakness Code(s): I63.9 - Cerebral infarction, unspecified Category: Medical Qualifiers: CVA mechanism: other Qualified Code(s): I63.89 - Other cerebral infarction Plan MRI brain reviewed Flory scan was normal - reviewed with patient Citalopram 20 mg qd continue clonazepam 0.5mg qhs Consider psychotherapy f/u Rheumatology Home sleep test was inconclusive Coding Level of Care Code Est Pt Level 4 ([address]403) Diagnoses Coarse tremors G25.2 Cerebrovascular accident (CVA) due to other mechanism I63.89 CVA mechanism: other
--- OUTSIDE RECORDS SUMMARY | 2025-05-23 14:24 | XMS_ITS ---
Author Name [facility] Organization Unknown Care Team Organization Name Specialty Phone Email Start Date End jomar [facility], [facility] Joe Griffin MD Primary Care 02/26/2021 01/23/2024
--- OUTSIDE RECORDS SUMMARY | 2025-05-23 14:24 | XMS_ITS | Clinical Summary ---
Author Organization [facility] Address [address] [place] [address] Phone Care Team Providers Care Account Executive [employer] Name Role Phone Rivera Galicia DO Primary Care Provider [phone] Allergies No known active allergies Medications acetaminophen (TYLENOL) 500 mg tablet Take 2 tablets (1,000 mg total) by mouth every 6 (six) hours if needed for mild pain for up to 10 days. 30 tablet 04/21/2025 05/01/20 25 ibuprofen (ADVIL,MOTRIN) 600 mg tablet Take 1 tablet (600 mg total) by mouth every 6 (six) hours if needed for mild pain for up to 7 days. 28 tablet 04/21/2025 04/28/20 25 Encounters Date Type Department Care Team Description 04/21/2025 12:33 PM EST - 04/21/2025 4:54 PM EST Emergency [facility] Emergency [address] [place] [address] Raymon Veras MD Pain of left hip (Primary Dx) Discharge Disposition: Home or Self Care from Last 3 Months Surgical History Surgery Date Site/Laterality Comments CARDIAC SURGERY JOINT REPLACEMENT Medical History Medical History Date Comments Rheumatic arteritis Social History Tobacco Use Types Packs/Day Years Used Date Smoking Tobacco: Former Smokeless Tobacco: Never Alcohol Use Standard Drinks/Week Comments Not Currently 0 (1 standard drink = 0.6 oz pur e alcohol) Comments No Sex and Gender Information Value Date Recorded Sex Assigned at Female 07/18/2024 9:31 AM EST Legal Sex Female 2:44 PM EST Gender Identity Female 07/18/2024 9:31 AM EST Sexual Orientation Choose not to disclose 2024 9:31 AM EST Obstetrics History Para Term AB IAB SAB Ectopic Multiple Livin g Live Births 2 Last Filed Vital Signs Vital Sign Reading Time Taken Comments Blood Pressure 144/92 04/21/2025 4:44 PM EST Pulse 79 04/21/2025 4:44 PM EST Temperature 36.3 C (97.3 F) 04/21/2025 4:44 PM EST Respiratory Rate 20 04/21/2025 4:44 PM EST Oxygen Saturation 96% 04/21/2025 4:44 PM EST Inhaled Oxygen Concentration - - Weight 90.7 kg (200 lb) 04/21/2025 12:23 PM EST Height 160 cm (5' 3 ) 04/21/2025 12:23 PM EST Body Mass Index 35.43 04/21/2025 12:23 PM EST Plan of Treatment Health Maintenance Due Date Last Done Comments Colorectal Cancer Screening: Colonoscopy 1955 Zoster Vaccines (1 of 2) 09/10/2003 Pneumococcal Vaccine: 50+ Years (2 of 2 - PCV) 12/23/2021 12/23/2020 Falls Risk Assessment 05/05/2022 Medicare Annual Wellness Visit 05/05/2022 Social Influencers of Health Screening 05/05/2022 Depression Screening 06/06/2024 COVID-19 Vaccine ( season) 2025 06/15/2023, 05/19/2022, 10/23/2021, Additional history exists Breast Cancer Screening 08/27/2026 08/28/19 25, 08/25/2023, 07/17/2018 RSV Immunization Adult Patients (1 - 1-dose 75+ series) 2028 DTaP,Tdap,and Td Vaccines (2 - Td or Tdap) 12/18/2029 12/19/2019 Cholesterol Screening (Lipid Panel) 02/07/2030 02/07/2025, 08/14/2024 Osteoporosis Screening (Bone Density Screening) 04/20/2034 04/20/2024 Hepatitis C Screening Completed 04/11/2023 Influenza Vaccine Completed 02/07/2025, , 03/02/2022, Additional history exists HIB Vaccines Aged Out No longer eligi [...] age to complete this topic Meningococcal B Vaccine Aged Out No l onger eligible based on patient's age to complete this topic RSV Immunization Patients Under 20 months Aged Out No longer eligible based on patient's age to complete this topic Varicella Vaccines Aged Out No longer eligible based on patient's age to complete this topic Procedures Procedure Name Priority Date/Time Associated Diagnosis Comments CT ABDOMEN PELVIS W CONTRAST STAT 04/21/2025 3:05 PM EST CBC WITH AUTO DIFFERENTIAL STAT 04/21/2025 12:59 PM EST COMPREHENSIVE METABOLIC PANEL STAT 04/21/2025 12:59 PM EST CBC AND DIFFERENTIAL STAT 04/21/2025 12:59 PM EST HOYT URINE CULTURE TUBE STAT 04/21/2025 12:52 PM EST URINALYSIS WITH REFLEX MICROSCOPIC AND CULTURE STAT 04/21/2025 12:52 PM EST URINALYSIS WITH REFLEX MICROSCOPIC AND CULTURE STAT 04/21/2025 12:52 PM EST CULTURE URINE STAT 04/21/2025 12:52 PM EST LIPID PANEL WITH REFLEX TO DIRECT LDL Routine 02/07/2025 11:09 AM EDT Hyperlipemia Essential hypertension, malignant Obstructive sleep apnea (adult) (pediatric) Myxedema heart disease Atrial fibrillation (CMS/HCC V24, CMS/HCC V28) MG MAMMO DIGITAL SCREENING W RIKI BILAT Routine 08/27/2024 1:19 PM EDT Breast cancer screening by mammogram BD BONE DENSITY DXA AXIAL SKELETON Routine 04/20/2024 10:58 AM EST Postmenopausal from Last 3 Months or Most Recently Relevant to Health Maintenance Results * CT Abdomen Pelvis w Contrast (04/21/2025 3:05 PM EST) Anatomical Region Laterality Modality Body Computed Tomogra phy 04/21/2025 3:32 PM EST Impressions 04/21/2025 3:45 PM EST No acute intra-abdominal process seen. There is no right inguinal hernia or mass. There is a small umbilical hernia containing fat. Nonobstructive radiopaque calculi upper/mid pole right kidney. No hydronephrosis. Colonic diverticulosis without diverticulitis. Mildly distended urinary bladder -------- FINAL REPORT -------- Dictated By: Francisco Frazier Dictated Date: 04/21/2025 15:32 ET Assigned Physician: Francisco Frazier Reviewed and Electronically Signed By: Francisco Frazier Signed Date: 04/21/2025 15:45 ET Workstation ID: [id number] Transcribed By: Self Edit Transcribed Date: 04/21/2025 15:32 ET Narrative 04/21/2025 3:45 PM EST EXAMINATION: CT abdomen and pelvis with contrast CLINICAL INDICATION: Left groin pain. COMPARISON: 2.5 mm thin axial and reformatted 3 mm thin sagittal and coronal images of abdomen and pelvis were obtained following IV 95 oh [id number]. : 1130. FINDINGS: There is minimal atelectatic changes in the left lung base. The right lung base is clear. The heart size is normal. The left atrium is moderately enlarged. Mitral valve prosthesis is noted. No pericardial or pleural effusion. Visualized liver, spleen, pancreas are unremarkable. No radiopaque gallstones or wall thickening seen. Bilateral adrenal glands are symmetrical. There is mild thinning of right kidney cortex throughout. There is a nonobstructive 9 mm radiopaque calculi upper/ pole right kidney. There is no hydronephrosis. The left kidney is normal thickness. No radiopaque calculi or hydronephrosis seen. The abdominal aorta is of normal caliber. No retroperitoneal There is scattered stool, diverticulitis and gas seen throughout the colon without distention. The small bowel loops are normal caliber. Appendix is normal caliber. No free air or free fluid seen. There is a small umbilical hernia containing fat The uterus is anteverted and appears unremarkable. No adnexal mass or free fluid. The bladder is mildly distended without any radiopaque calculi. There is no right inguinal hernia or mass or abnormal lymphadenopathy. Mild degenerative disc changes at L4-5, L5-S1 and L2-3 disc levels. No aggressive lytic or sclerotic process. Procedure Note Francisco Frazier MD - 04/21/2025 EXAMINATION: CT abdomen and pelvis with contrast CLINICAL INDICATION: Left groin pain. COMPARISON: 2.5 mm thin axial and reformatted 3 mm thin sagittal andcoronal images of abdomen and pelvis were obtained following IV 95 [id number]. : 1130. FINDINGS: There is minimal atelectatic changes in the left lung base. The right lungbase is clear. The heart size is normal. The left atrium is moderatelyenlarged. Mitral valve prosthesis is noted. No pericardial or pleuraleffusion. Visualized liver, spleen, pancreas are unremarkable. No radiopaquegallstones or wall thickening seen. Bilateral adrenal glands aresymmetrical. There is mild thinning of right kidney cortex throughout.There is a nonobstructive 9 mm radiopaque calculi upper/ pole rightkidney. There is no hydronephrosis. The left kidney is normal thickness.No radiopaque calculi or hydronephrosis seen. The abdominal aorta is ofnormal caliber. No retroperitoneal There is scattered stool,diverticulitis and gas seen throughout the colon without distention. Thesmall bowel loops are normal caliber. Appendix is normal caliber. No freeair or free fluid seen. There is a small umbilical hernia containing fat The uterus is anteverted and appears unremarkable. No adnexal mass or freefluid. The bladder is mildly distended without any radiopaque calculi. There is no right inguinal hernia or mass or abnormal lymphadenopathy. Mild degenerative disc changes at L4-5, L5-S1 and L2-3 disc levels. Noaggressive lytic or sclerotic process. IMPRESSION: No acute intra-abdominal process seen. There is no right inguinal hernia or mass. There is a small umbilicalhernia containing fat. Nonobstructive radiopaque calculi upper/mid poleright kidney. No hydronephrosis. Colonic diverticulosis without diverticulitis. Mildly distended urinary bladder -------- FINAL REPORT -------- Dictated By: Francisco Frazier Dictated Date: 04/21/2025 15:32 ET Assigned Physician: Francisco Frazier Reviewed and Electronically Signed By: Francisco Frazier Signed Date: 04/21/2025 15:45 ET Workstation ID: [id number] Transcribed By: Self Edit Transcribed Date: 04/21/2025 15:32 ET [place] BARRERA IMG CT PROCEDURES Final Result * (ABNORMAL) CBC auto differential (04/21/2025 12:59 PM EST) WBC 7.7 4.8 - 10.8 K/mcL LAB HEMETOLOGY METHOD 04/21/2025 1:[address] [facility] RBC 4.30 3.80 - 4.80 M/mcL LAB HEMETOLOGY METHOD 04/21/2025 1:[address] [facility] Hemoglobin 12.0 11.5 - 16.0 g/dL LAB HEMETOLOGY METHOD 04/21/2025 1:[address] [facility] Hematocrit 37.2 35.0 - 47.0 % LAB HEMETOLOGY METHOD 04/21/2025 1:[address] [facility] MCV 86.9 79.0 - 98.0 FL LAB HEMETOLOGY METHOD 04/21/2025 1:[address] [facility] MCH 28.0 27.0 - 32.0 pcg LAB HEMETOLOGY METHOD 04/21/2025 1:[address] [facility] MCHC 32.3 32.0 - 37.0 g/dL LAB HEMETOLOGY METHOD 04/21/2025 1:[address] [facility] RDW 15.2(H) 11.0 - 15.0 % LAB HEMETOLOGY METHOD 04/21/2025 1:[address] [facility] Platelets 207 130 - 400 K/mcL LAB HEMETOLOGY METHOD 04/21/2025 1:[address] [facility] MPV 11.5(H) 7.0 - 11.0 FL LAB HEMETOLOGY METHOD 04/21/2025 1:[address] [facility] NRBC 0.0 <1.0 % LAB HEMETOLOGY METHOD 04/21/2025 1:[address] [facility] NRBC Absolute 0.00 <0.10 K/mcL LAB HEMETOLOGY METHOD 04/21/2025 1:[address] [facility] Neutrophils Relative 59.2 % LAB HEMETOLOGY METHOD 04/21/2025 1:[address] [facility] Lymphocytes Relative 29.9 % LAB HEMETOLOGY METHOD 04/21/2025 1:[address] [facility] Monocytes Relative 6.7 % LAB HEMETOLOGY METHOD 04/21/2025 1:[address] [facility] Eosinophils Relative 3.7 % LAB HEMETOLOGY METHOD 04/21/2025 1:[address] [facility] Basophils Relative 0.4 % LAB HEMETOLOGY METHOD 04/21/2025 1:[address] [facility] Immature Granulocytes Relative 0.1 % LAB HEMETOLOGY METHOD 04/21/2025 1:[address] [facility] Neutrophils Absolute 4.53 1.50 - 7.00 K/mcL LAB HEMETOLOGY METHOD 04/21/2025 1:[address] [facility] Lymphocytes Absolute 2.29 1.00 - 5.00 K/mcL LAB HEMETOLOGY METHOD 04/21/2025 1:27 PM EST [facility] Monocytes Absolute 0.51 0.20 - 1.00 K/mcL LAB HEMETOLOGY METHOD 04/21/2025 1:27 PM EST [facility] Eosinophils Absolute 0.28 0.00 - 0.50 K/mcL LAB HEMETOLOGY METHOD 04/21/2025 1:27 PM EST [facility] Basophils Absolute 0.03 0.00 - 0.20 K/[facility] LAB HEMETOLOGY METHOD 04/21/2025 1:27 PM EST [facility] Immature Granulocytes Absolute 0.01 0.00 - 0.03 K/[facility] LAB HEMETOLOGY METHOD 04/21/2025 1:[address] [facility] Blood Venous blood specimen / Unknown Venipuncture / Unknown 04/21/2025 12:59 PM EST 04/21/2025 1:17 PM EST us Kenya BARRERA LAB BLOOD ORDERABL ES Final Result [facility] [address] [place] [address], * (ABNORMAL) Comprehensive metabolic panel (04/21/2025 12:59 PM EST) Sodium 138 133 - 145 mmol/L LAB CHEMISTRY METHOD 04/21/2025 1:40 PM EST [facility] Potassium 4.6 3.5 - 5.5 mmol/L LAB CHEMISTRY METHOD 04/21/2025 1:[address] [facility] Chloride 105 96 - 110 mmol/L LAB CHEMISTRY METHOD 04/21/2025 1:[address] [facility] CO2 31 21 - 32 mmol/L LAB CHEMISTRY METHOD 04/21/2025 1:[address] [facility] Anion Gap 2(L) 3 - 11 LAB CHEMISTRY METHOD 04/21/2025 1:[address] [facility] Glucose 98 70 - 100 mg/dL LAB CHEMISTRY METHOD 04/21/2025 1:[address] [facility] BUN 19 5 - 25 mg/dL LAB CHEMISTRY METHOD 04/21/2025 1:[address] [facility] Creatinine 0.71 0.50 - 1.10 mg/dL LAB CHEMISTRY METHOD 04/21/2025 1:[address] [facility] eGFR 91 >=60 mL/min/1. 73m2 LAB CHEMISTRY METHOD 04/21/2025 1:[address] [facility] Comment:Calculation based on the Chronic Kidney Disease Epidemiology Collaboration (CKD-EPI) equation refit without adjustment for race. BUN/Creatinine Ratio 26.8 LAB CHEMISTRY METHOD 04/21/2025 1:[address] [facility] Calcium 9.3 8.5 - 10.5 mg/dL LAB CHEMISTRY METHOD 04/21/2025 1:[address] [facility] AST (SGOT) 27 10 - 42 unit/L LAB CHEMISTRY METHOD 04/21/2025 1:[address] [facility] ALT (SGPT) 27 10 - 60 unit/L LAB CHEMISTRY METHOD 04/21/2025 1:[address] [facility] Alkaline Phosphatase 95 42 - 121 unit/L LAB CHEMISTRY METHOD 04/21/2025 1:[address] [facility] Total Protein 7.1 6.0 - 8.0 g/dL LAB CHEMISTRY METHOD 04/21/2025 1:[address] [facility] Albumin 3.8 3.2 - 5.0 g/dL LAB CHEMISTRY METHOD 04/21/2025 1:[address] [facility] Total Bilirubin 0.5 0.0 - 1.4 mg/dL LAB CHEMISTRY METHOD 04/21/2025 1:[address] [facility] Blood Venous blood specimen / Unknown Venipuncture / Unknown 04/21/2025 12:59 PM EST 04/21/2025 1:17 PM EST us Kenya BARRERA LAB BLOOD ORDERABL ES Final Result [facility] [address] [place] [address], [place] [phone] * (ABNORMAL) Urinalysis with reflex microscopic and culture (04/21/2025 12:52 PM EST) Pathologist [facility] Specific [place] Urine 1.012 1.003 - 1.030 LAB URINALYSIS - AUTOMATED METHOD 04/21/2025 2:[address] [facility] pH, Urine 5.5 5.0 - 8.0 pH LAB URINALYSIS - AUTOMATED METHOD 04/21/2025 2:[address] [facility] Leukocytes, Urine Trace(A) Negative LAB URINALYSIS - AUTOMATED METHOD 04/21/2025 2:[address] [facility] Nitrite, Urine Negative Negative LAB URINALYSIS - AUTOMATED METHOD 04/21/2025 2:[address] [facility] Protein, Urine Negative <=Trace mg/dL LAB URINALYSIS - AUTOMATED METHOD 04/21/2025 2:[address] [facility] Glucose, Urine Negative Negative mg/dL LAB URINALYSIS - AUTOMATED METHOD 04/21/2025 2:[address] [facility] Ketones, Urine Negative Negative mg/dL LAB URINALYSIS - AUTOMATED METHOD 04/21/2025 2:[address] [facility] Urobilinogen, Urine 0.2 0.2 - 1.0 mg/dL LAB URINALYSIS - AUTOMATED METHOD 04/21/2025 2:[address] [facility] Bilirubin, Urine Negative Negative LAB URINALYSIS - AUTOMATED METHOD 04/21/2025 2:[address] [facility] Blood, Urine Trace(A) Negative LAB URINALYSIS - AUTOMATED METHOD 04/21/2025 2:[address] [facility] RBC, Urine 0 0 - 4 /HPF 04/21/2025 2:[address] [facility] WBC, Urine 2 0 - 4 /HPF 04/21/2025 2:[address] [facility] Squamous Epithelial, Urine 5 0 - 60 /LPF 04/21/2025 2:[address] [facility] Bacteria, Urine Negative Negative /HPF 04/21/2025 2:[address] [facility] Hyaline Casts, Urine 2 0 - 3 /LPF 04/21/2025 2:[address] [facility] Urine Urine specimen obtained by clean catch procedure / Unknown Non-blood Collection / Unknown 04/21/2025 12:52 PM EST 04/21/2025 1:17 PM EST Kenya BARRERA LAB URINE ORDERABL ES Final Result Performing Organization Address City/[facility]/ZIP Co de Phone Number [facility] [address] [place] [address], [place] [phone] * Hoyt urine culture tube (04/21/2025 12:52 PM EST) Extra Tube Hold for add-ons. 04/21/2025 3:01 PM EST [facility] Comment:Auto resulted. Urine Urine specimen obtained by clean catch procedure / Unknown Non-blood Collection / Unknown 04/21/2025 12:52 PM EST 04/21/2025 1:17 PM EST Kenya BARRERA LAB URINE ORDERABL ES Final Result [facility] [address] [place] [address], [place] [phone] * Culture urine (04/21/2025 12:52 PM EST) Culture, Urine No growth 04/22/2025 12:16 PM EST [facility] Urine Urine specimen obtained by clean catch procedure / Unknown Non-blood Collection / Unknown 04/21/2025 12:52 PM EST 04/21/2025 2:19 PM EST Kenya BARRERA LAB MICROBIOLOGY - GENERAL ORDERABLES Final Result [facility] [address] [place] [address], [place] [phone] * Lipid panel with reflex to direct LDL (02/07/2025 11:09 AM EDT) Cholesterol 137 0 - 200 mg/dL LAB CHEMISTRY METHOD 02/07/2025 3:38 PM EDT [facility] Triglycerides 115 0 - 150 mg/dL LAB CHEMISTRY METHOD 02/07/2025 3:38 PM EDT [facility] HDL 55 >=40 mg/dL LAB CHEMISTRY METHOD 02/07/2025 3:38 PM EDT [facility] LDL Calculated 59 0 - 100 mg/dL LAB CHEMISTRY METHOD 02/07/2025 3:38 PM EDT [facility] Comment:Estimated LDL Calcul ated using equation: Total cholesterol - HDL cholesterol - (Triglycerides/5) VLDL Cholesterol Angelito 23 mg/dL LAB CHEMISTRY METHOD 02/07/2025 3:38 PM EDT [facility] Non HDL Chol. (LDL+VLDL) 82 <145 mg/dL LAB CHEMISTRY METHOD 02/07/2025 3:38 PM EDT [facility] Chol/HDL Ratio 2.5 0.0 - 4.4 LAB CHEMISTRY METHOD 02/07/2025 3:38 PM [facility] Blood Venous blood specimen / Unknown Venipuncture / Unknown 02/07/2025 11:09 AM EDT 02/07/2025 11:09 AM EDT us Natalya Lui NP LAB BLOOD ORDERABLES Fi nal Result [facility] [address] [place] [address], [place] [phone] * MG Mammo Digital Screening w Riki bilat (08/27/2024 1:19 PM EDT) Anatomical Region Laterality Modality Breast Bilateral Mammography 08/30/2024 8:56 AM EDT Impressions 08/30/2024 9:01 AM EDT No mammographic evidence of malignancy. A negative mammogram in the presence of a clinically suspicious palpable abnormality does not preclude the possibility of malignancy or alter the indications for biopsy. PQRI CPT II 3342F Code 96091, 61536 PQRI 225 CPT II 7025F TISSUE DENSITY: There are scattered areas of fibroglandular density. (BI-RADS category B) IMPRESSION: Benign. BI-RADS CATEGORY: 2 - BENIGN RECOMMENDATION: Screening bilateral mammogram is recommended in 1 year. Mammo Location: [facility], [address] [place] [id number] -------- FINAL REPORT -------- Dictated By: Mathew Joseph Dictated Date: 08/30/2024 08:56 ET Assigned Physician: Mathew Joseph Reviewed and Electronically Signed By: Mathew Joseph Signed Date: 08/30/2024 09:01 ET Workstation ID: [id number] Transcribed By: Self Edit Transcribed Date: 08/30/2024 08:56 ET Narrative 08/30/2024 9:01 AM EDT CLINICAL: The patient is a 68 years Female presenting for routine screening mammography. COMPARISON: 08/25/2023 and 07/17/2018. TECHNIQUE: Full-field digital mammography of the breasts bilaterally consisting of tomosynthesis in MLO and CC projection is performed in the [employer] 2000-D unit. Computer aided detection utilizing the iCAD system was utilized. FINDINGS: The breasts are again seen to be largely fatty replaced. A few scattered nodules with appearance characteristic of benign lymph nodes are again seen bilaterally, stable. There is no suspicious cluster of microcalcifications, mass, or area of architectural distortion. There is no skin thickening or nipple retraction. Procedure Note Mathew Joseph MD - 08/30/2024 CLINICAL: The patient is a 68 years Female presenting for routinescreening mammography. COMPARISON: 08/25/2023 and 07/17/2018. TECHNIQUE: Full-field digital mammography of the breasts bilaterallyconsisting of tomosynthesis in MLO and CC projection is performed in the[employer]ototw[employer]he 2000-D unit. Computer aided detection utilizing the Copper Mobileystem was utilized. FINDINGS: The breasts are again seen to be largely fatty replaced. A fewscattered nodules with appearance characteristic of benign lymph nodes areagain seen bilaterally, stable. There is no suspicious cluster ofmicrocalcifications, mass, or area of architectural distortion. There isno skin thickening or nipple retraction. IMPRESSION: No mammographic evidence of malignancy. A negative mammogram in the presence of a clinically suspicious palpableabnormality does not preclude the possibility of malignancy or alter theindications for biopsy. PQRI CPT II 3342F Code 57623, 56160 PQRI 225 CPT II 7025F TISSUE DENSITY: There are scattered areas of fibroglandular density.(BI-RADS category B) IMPRESSION: Benign. BI-RADS CATEGORY: 2 - BENIGN RECOMMENDATION: Screening bilateral mammogram is recommended in 1 year. Mammo Location: [facility], [address] [place] [id number] -------- FINAL REPORT -------- Dictated By: Mathew Joseph Dictated Date: 08/30/2024 08:56 ET Assigned Physician: Mathew Joseph Reviewed and Electronically Signed By: Mathew Joseph Signed Date: 08/30/2024 09:01 ET Workstation ID: [id number] Transcribed By: Self Edit Transcribed Date: 08/30/2024 08:56 ET us Rivera Galicia DO IMG BI PROCEDURES Final Resul t * BD Bone Density DXA Axial Skeleton (04/20/2024 10:58 AM EST) Anatomical Region Laterality Modality Wrist, Hip, L-spine Bone Densito metry 04/20/2024 11:0 3 AM EST Impressions 04/20/2024 11:05 AM EST 1. Osteopenia. There has been an increase of 4.0% in bone mineral density in the lumbar spine since the prior examination of 05/09/2015. There has been a decrease of 9.4% in bone mineral density in the right femur and a decrease of 8.4% in bone mineral density in the left femur. 2. FRAX analysis yields a 10-year probability of major osteoporotic fracture of 22.2% and a 10-year probability of hip fracture of 4.7%. Code 08958 -------- FINAL REPORT -------- Dictated By: Mathew Joseph Dictated Date: 04/20/2024 11:03 ET Assigned Physician: Mathew Joseph Reviewed and Electronically Signed By: Mathew Joseph Signed Date: 04/20/2024 11:05 ET Workstation ID: [id number] Transcribed By: Self Edit Transcribed Date: 04/20/2024 11:04 ET Narrative 04/20/2024 11:05 AM EST HISTORY: The patient is a 68-year-old postmenopausal female with clinical concern for metabolic bone disease. FINDINGS: Dual energy x-ray absorptiometry of the lumbar spine and femurs is performed. The mean bone mineral density at L1-L4 is 1.087 gm/cm2 which is 92% of that of young normals and 98% of that of age matched controls. This yields a T-score of -0.8 and a Z-score of -0.2 and there is therefore no evidence of osteoporosis or osteopenia here. The mean bone mineral density of the femurs bilaterally is 0.866 gm/cm2 which is 86% of that of young normals and 95% of that of age matched controls. This yields a T-score of -1.1 and a Z-score of -0.4 which is diagnostic of osteopenia. The T-score of the right femoral neck is -2.1 and that of the left femoral neck is -1.7 which is diagnostic of osteopenia. Procedure Note [...] density of the femurs bilaterally is 0.866 gm/rd4opdqp is 86% of that of young normals [...] probability of hip fracture of 4.7%. Code 89080 -------- FINAL REPORT -------- Dictated By: Mathew Joseph Dictated Date: 04/20/2024 11:03 ET Assigned Physician: Mathew Joseph Reviewed and Electronically Signed By: Mathew Joseph Signed Date: 04/20/2024 11:05 ET Workstation ID: [id number] Transcribed By: Self Edit Transcribed Date: 04/20/2024 11:04 ET Rivera Galicia DO [facility] DXA PROCEDURES Final Resu lt from Last 3 Months or Most Recently Relevant to Health Maintenance Insurance MEDICARE [facility] Care Teams Account Executive Healthcare Relationship Specialty Start Date End Date Rivera Galicia DO [address] [place] [phone] PCP - General 08/20/04
--- OUTSIDE RECORDS SUMMARY | 2025-05-23 14:24 | XMS_ITS | Clinical Summary ---
Author Organization [facility] Address [address] [place] [phone] Phone Care Team Providers Care Operations Vice President Name Role Phone Kevin Henson MD Unavailable [email or web address] Frida Riverapaula DAY Primary Care Provider [phone] Allergies No known active allergies Medications warfarin (COUMADIN) 3 MG tablet Take 3 mg by mouth daily. Active metoprolol (LOPRESSOR) 25 MG tablet Take 50 mg by mouth 2 (two) times a day. Active gabapentin (NEURONTIN) 300 MG capsule Take 300 mg by mouth 3 (three) times a day. Active levothyroxine (SYNTHROID, LEVOTHROID) 112 MCG tablet Take 112 mcg by mouth daily. Active simvastatin (ZOCOR) 40 MG tablet Take 40 mg by mouth nightly. Active furosemide (LASIX) 40 MG tablet Take 40 mg by mouth daily. Active clonazePAM (KLONOPIN) 0.5 MG tablet Take 0.5 mg by mouth as needed for anxiety. Active adalimumab (HUMIRA,CF, PEN) 40 mg/0.4 mL pen kit citrate freeIndications: Rheumatoid arthritis involving multiple sites with positive rheumatoid factor Inject 0.4 mL (40 mg total) under the skin every 7 days. 1.6 mL 11 08/06/2024 Active citalopram (CELEXA) 20 MG tablet Take 20 mg by mouth daily. 11/22/2024 Active Active Problems Problem Noted Date Diagnosed Date Status post CVA 04/11/2025 Assessment & Plan (04/11/2025 11:00 AM EST): She has residual weakness and mild muscle rigidity particularly in her right upper extremity with poor balance and is interested in getting help from physical therapy to improve the muscle strength, reduce rigidity and help her move independently Class 2 severe obesity due t o excess calories with serious comorbidity and body mass index (BMI) of 37.0 to 37.9 in adult 12/06/2024 Assessment & Plan (04/11/2025 11:00 AM EST): Continue diligent portion control especially in view of gaining 2 pounds from 211 on 12/06/2022 up to 213 today. Limit concentrated sugars, saturated fats and calories in the diet. Keep well-hydrated. If unable to achieve expected goal consider formal dietary/nutritional support. Assessment & Plan (01/06/2025 10:04 PM EDT): Congratulations on losing 7 pounds from 218 on 08/06/2024 down to 211 today and keep it off. Continue diligent portion control. Limit concentrated sugars, saturated fats and calories in the diet. Keep well-hydrated. If unable to achieve expected goal consider formal dietary/nutritional support. Anticoagulated 12/06/2024 Assessment & Plan (04/11/2025 10:25 AM EST): Coumadin exactly as prescribed and follow closely with anticoagulation clinic as scheduled. Assessment & Plan (01/06/2025 10:05 PM EDT): Coumadin exactly as prescribed and follow closely with anticoagulation clinic as scheduled. On statin therapy 12/06/2024 Assessment & Plan (04/11/2025 10:49 AM EST): Monitor for muscle tenderness, swelling and weakness Assessment & Plan (12/06/2024 10:34 AM EDT): Monitor for muscle tenderness, swelling and weakness Adalimumab (Humira) long-term use 08/06/2024 Assessment & Plan (04/11/2025 10:25 AM EST): Hold Humira whenever running fever, feeling sick or taking antibiotics. Complete entire course of antibiotics and wait at least 48 hours after the last dose to make sure that infection does not recur before returning to its usual weekly subcutaneous injections every Tuesday. Monitor for injection site reactions. Avoid sick contacts and keep up-to-date on vaccinations. Make sure to inform any new HOLLY NICOLE, COGNOS BI ADMINISTRATOR about chronic therapy with Humira (adalimumab) particularly in emergency situations. Assessment & Plan (12/06/2024 10:03 AM EDT): Hold Humira whenever running fever, feeling sick or taking antibiotics. Complete entire course of antibiotics and wait at least 48 hours after the last dose to make sure that infection does not recur before returning to its usual weekly subcutaneous injections every Tuesday. Monitor for injection site reactions. Avoid sick contacts and keep up-to-date on vaccinations. Make sure to inform any new HOLLY NICOLE COGNOS BI ADMINISTRATOR about chronic therapy with Humira (adalimumab) particularly in emergency situations. Assessment & Plan (08/07/2024 12:10 PM EST): Hold Humira whenever running fever, feeling sick or taking antibiotics. Complete entire course of antibiotics and wait at least 48 hours after the last dose to make sure that infection does not recur before returning to its usual weekly subcutaneous injections every Tuesday. Monitor for injection site reactions. Avoid sick contacts and keep up-to-date on vaccinations. Make sure to inform any new HOLLY NICOLE, [employer]GNOS BI ADMINISTRATOR about chronic therapy with Humira (adalimumab) particularly in emergency situations. Rheumatoid arthritis involvi ng multiple sites with positive rheumatoid factor 04/11/2023 Assessment & Plan (04/11/2025 10:58 AM EST): Clinically and laboratory marcus well-controlled. Continue carefully every 7 days subcutaneous Humira injections. Get monitoring labs today. Avoid sick contacts, falls, injuries and overuse. Continue gentle, regular ROM stretching and muscle strengthening exercises as educated by PT and OT. Return in 4 months if no worsening with prior blood work monitoring safety and efficacy-standing orders in [facility]. Assessment & Plan (01/06/2025 10:03 PM EDT): Clinically and laboratory marcus well-controlled. Continue carefully every 7 days subcutaneous Humira injections. Avoid sick contacts, falls, injuries and overuse. Continue gentle, regular ROM stretching and muscle strengthening exercises as educated by PT and OT. Return in 4 months if no worsening with prior blood work monitoring safety and efficacy-standing orders in [facility]. Assessment & Plan (08/07/2024 12:05 PM EST): Clinically [id number] monitoring labs since last set in October 2023. Continue carefully every 7 days subcutaneous Humira injections. Avoid sick contacts, falls, injuries and overuse. Continue gentle, regular ROM stretching and muscle strengthening exercises as educated by PT and OT. Return in 4 months if no worsening with prior blood work monitoring safety and efficacy-standing orders in [facility]. Assessment & Plan (11/02/2023 2:29 PM EDT): Seropositive rheumatoid arthritis well-controlled on Humira injected weekly. She has no stiffness or swelling. Sent her for some labs today. Assessment & Plan (04/11/2023 1:23 PM EST): Seropositive rheumatoid arthritis well-controlled on Humira every week, with no active swelling or synovitis. She did not get symptomatic relief on every other week dosing. We will send her for some baseline labs today including hepatitis B, C and QuantiFERON gold. Primary osteoarthritis involving multiple joints 04/11/2023 Assessment & Plan (04/11/2025 10:25 AM EST): Joint protection, energy conservation. Gentle, regular exercise routine. Avoid falls, injuries, overuse. Keep body weight in ideal range for her height. She may benefit from topical cream such as Arnica, Biofreeze, Aspercreme versus medicated patches such as salonpas, icy hot patch 2-3 times daily and if necessary at bedtime x 3 weeks. Assessment & Plan (12/06/2024 10:03 AM EDT): Joint protection, energy conservation. Gentle, regular exercise routine. Avoid falls, injuries, overuse. Keep body weight in ideal range for her height. She may benefit from topical cream such as Arnica, Biofreeze, Aspercreme versus medicated patches such as salonpas, icy hot patch 2-3 times daily and if necessary at bedtime x 3 weeks. Assessment & Plan (08/07/2024 12:06 PM EST): Joint protection, energy conservation. Gentle, regular exercise routine. Avoid falls, injuries, overuse. Keep body weight in ideal range for her height. She may benefit from topical cream such as Arnica, Biofreeze, Aspercreme versus medicated patches such as salonpas, icy hot patch 2-3 times daily and if necessary at bedtime x 3 weeks. Assessment & Plan (11/02/2023 2:29 PM EDT): Osteoarthritis in multiple joints with no swelling. She can continue with Tylenol 650 mg twice a day as needed. Assessment & Plan (04/11/2023 1:24 PM EST): Degenerative osteoarthritis in multiple areas with no swelling. She can continue with Tylenol 650 mg as needed as well as gabapentin 3 times a day. She should not be taking oral NSAIDs because she is also on warfarin. LALITA (obstructive sleep apnea) 10/30/2015 Assessment & Plan (04/11/2025 10:49 AM EST): Admits to difficulty tolerating CPAP-encouraged to follow closely with sleep medicine/athlete marketing agent to adjust treatment options according to her tolerance. Assessment & Plan (01/06/2025 10:03 PM EDT): Admits to difficulty tolerating CPAP-encouraged to follow closely with sleep medicine/athlete marketing agent to adjust treatment options according to her tolerance. Assessment & Plan (08/07/2024 12:08 PM EST): Admits to difficulty tolerating CPAP-encouraged to follow closely with sleep medicine/athlete marketing agent to adjust treatment options according to her tolerance. Stroke 10/30/2015 Atrial fibrillation 10/30/2015 Status post mitral valve replacement with metall ic valve 10/30/2015 Assessment & Plan (04/11/2025 10:26 AM EST): Remain on Coumadin as prescribed and follow closely with canvas shrinker and anticoagulation nurse for further management. Assessment & Plan (01/06/2025 10:03 PM EDT): Remain on Coumadin as prescribed and follow closely with canvas shrinker and anticoagulation nurse for further management. Assessment & Plan (08/07/2024 12:07 PM EST): Remain on Coumadin as prescribed and follow closely with canvas shrinker and anticoagulation nurse for further management. Hypothyroidism 10/30/2015 Migraine 10/30/2015 Nephrolithiasis 10/30/2015 Essential tremor 10/30/2015 Resolved Problems Problem Noted Date Diagnosed Date Resolved Date On selective serotonin reupt cyrus inhibitor (SSRI) therapy 08/06/2024 01/06/2025 Assessment & Plan (08/07/2024 12:08 PM EST): Monitor for mood swings, increased muscle rigidity and temperature intolerance. Class 2 severe obesity due t o excess calories with serious comorbidity and body mass index (BMI) of 38.0 to 38.9 in adult 08/06/2024 Assessment & Plan (08/07/2024 12:08 PM EST): Continue diligent portion control particularly in view of gaining 9 pounds from 209 on 10/11/2023 up to 218 today. Limit concentrated sugars, saturated fats and calories in the diet. Keep well-hydrated. If unable to achieve expected goal consider formal dietary/nutritional support. S/P MVR (mitral valve replacement) 07/19/2017 04/11/2025 Encounters Date Type Department Care Team Description 04/11/2025 10:00 AM EST Office Visit [facility] [address] [place] [address] Tawnya Langston MD Rheumatoid arthritis involving multiple sites with positive rheumatoid factor (Primary Dx); Primary osteoarthritis involving multiple joints; Adalimumab (Humira) long-term use; S/P MVR (mitral valve replacement); Anticoagulated; Status post mitral valve replacement with metallic valve; On statin therapy; LALITA (obstructive sleep apnea); Status post CVA; Class 2 severe obesity due to excess calories with serious comorbidity and body mass index (BMI) of 37.0 to 37.9 in adult from Last 3 Months Immunizations Immunization Administration Dates Next Due [id number] FORMULATION 05/16/2009 Social History Tobacco Use Types Packs/Day Years Used Date Smoking Tobacco: Former Smokeless Tobacco: Never Tobacco Cessation:Counseling Given: Not Answered Alcohol Use Standard Drinks/Week Comments Not Currently 2 (1 standard drink = 0.6 oz pur e alcohol) with dinner Education Answer Date Recorded Are you interested in more education? Not on frantz e 09/30/2022 Are you concerned about learning? Not on file 09/30/2022 No 09/30/2022 No 09/30/2022 Digital Access Answer Date Recorded No 11/01/2022 No 11/01/2022 Reliable internet access at home? Not on file 11/01/2022 Device with a working camera? Not on file Comments Unknown Sex and Gender Information Value Date Recorded Sex Assigned at Not on file Legal Sex Female 7:48 PM EST Gender Identity Not on file Sexual Orientation Not on file Last Filed Vital Signs Vital Sign Reading Time Taken Comments Blood Pressure 116/80 04/11/2025 9:55 AM EST Pulse 74 04/11/2025 9:55 AM EST Temperature 36.6 C (97.9 F) 10/30/2015 3:30 PM EDT Respiratory Rate - - Oxygen Saturation 97% 04/11/2025 9:55 AM EST Inhaled Oxygen Concentration - - Weight 96.6 kg (213 lb) 04/11/2025 9:55 AM EST Height 160 cm (5' 3 ) 12/06/2024 9:48 AM EDT Body Mass Index 37.73 12/06/2024 9:48 AM EDT Plan of Treatment Upcoming Encounters Date Type Department Care Team (Late st Contact Info) Description 06/17/2025 1:00 PM EST Office Visit [facility] [address] [place] [address] Tawnya Langston MD [address] [facility], [address] [place] [address] Kristine Prieto, PT [address] [place] [address] 06/20/2025 1:30 PM EST Office Visit [facility] [address] [place] [address] Tawnya Langston MD [address] [place] [phone] Kristine Prieto, PT [address] [place] [address] 07/01/2025 1:00 PM EST Office Visit [facility] [address] [place] [address] Tawnya Langston MD [address] [place] [phone] Kristine Prieto, PT 8 [place] [address] 07/04/2025 1:30 PM EST Office Visit [facility] [address] [place] [address] Tawnya Langston MD [address] [place] [phone] Kristine Prieto, PT [address] [place] [address] 07/08/2025 1:00 PM EST Office Visit [facility] [address] [place] [address] Tawnya Langston MD [address] [place] [phone] Kristine Prieto, PT [address] [place] [address] 07/11/2025 1:30 PM EST Office Visit [facility] [address] [place] [address] Tawnya Langston MD [address] [place] [address] Kristine Prieto, PT [address] [place] [address] 07/15/2025 1:00 PM EST Office Visit [facility] [address] [place] [phone] Tawnya Langston MD [address] [place] [address] Kristine Prieto, PT 8 [place] [address] 07/18/2025 1:30 PM EST Office Visit [facility] [address] [address] Tawnya Langston MD [address] [place] [phone] Kristine Prieto, PT 8 [place] [address] 08/12/2025 10:00 AM EDT Office Visit [facility] [address] [place] [address] Tawnya Langston MD [address] [place] [phone] [email or web address] Health Maintenance Due Date Last Done Comments SMOKING Hx and SMOKELESS TOBACCO SCREENING 1966 PNEUMOCOCCAL VACCINES (50+ years) (1 of 2 - PCV) 1972 ZOSTER VACCINES (1 of 2) 1972 COLOGUARD 1998 COLONOSCOPY 1998 COLORECTAL CANCER SCREENING 1998 FIT TEST 1998 FOBT 1998 SIGMOIDOSCOPY 1998 VIRTUAL COLONOSCOPY 1998 RSV VACCINE (1 - Risk 50-74 years 1-dose series) 09/10/2003 DEPRESSION SCREENING 07/19/2018 07/19/2017 COVID-19 VACCINE ( season) 2025 06/15/2023, 05/19/2022, 10/23/2021, Additional history exists LIPID PANEL 02/07/2026 02/07/2025, 08/14/2024 TSH LEVEL 02/07/2026 02/07/2025, 10/04, 08/27/2024, Additional history exists MAMMOGRAM 08/27/2026 08/27/2024, 08/27/2024 Adult Td,Tdap Booster 12/18/2029 12/19/2019 HEPATITIS C SCREENING Completed 04/11/2023, 023 OSTEOPOROSIS SCREENING INITIAL (ONE-TIME) Completed 04/20/2024 INFLUENZA VACCINE Completed 02/07/2025, , 03/02/2022, Additional history exists HEPATITIS A VACCINES Aged Out No long er eligible based on patient's age to complete this topic HIB VACCINES Aged Out No longer eligi ble based on patient's age to complete this topic MENINGOCOCCAL VACCINES (ACWY) Aged Out No longer eligible based on patient's age to complete this topic MENINGOCOCCAL VACCINES (B) Aged Out N o longer eligible based on patient's age to complete this topic Medical Devices Not on file Procedures Procedure Name Priority Date/Time Associated Diagnosis Comments CBC AND DIFFERENTIAL Today 04/11/2025 12:15 PM EST Rheumatoid arthritis involving multiple sites with positive rheumatoid factor Adalimumab (Humira) long-term use CBC AND DIFFERENTIAL Routine 04/11/2025 12:15 PM EST Rheumatoid arthritis involving multiple sites with positive rheumatoid factor Adalimumab (Humira) long-term use SEDIMENTATION RATE (ESR) Today 04/11/2025 12:15 PM EST Rheumatoid arthritis involving multiple sites with positive rheumatoid factor Adalimumab (Humira) long-term use C-REACTIVE PROTEIN (CRP) Today 04/11/2025 12:15 PM EST Rheumatoid arthritis involving multiple sites with positive rheumatoid factor Adalimumab (Humira) long-term use COMPREHENSIVE METABOLIC PANEL (CMP) Today 04/11/2025 12:15 PM EST Rheumatoid arthritis involving multiple sites with positive rheumatoid factor Adalimumab (Humira) long-term use HEPATITIS C ANTIBODY, QUALITATIVE Routine 04/11/2023 12:21 PM EST Rheumatoid arthritis involving multiple sites with positive rheumatoid factor from Last 3 Months or Most Recently Relevant to Health Maintenance Results * Comprehensive Metabolic Panel (CMP) (04/11/2025 12:15 PM EST) Sodium 139 136 - 145 mmol/L 04/11/2025 5:11 PM [facility] Potassium 5.1 3.4 - 5.1 mmol/L 04/11/2025 5:11 PM [facility] Chloride 104 98 - 107 mmol/L 04/11/2025 5:11 PM [facility] CO2 27 20 - 31 mmol/L 04/11/2025 5:11 PM [facility] Anion Gap 8 3 - 17 mmol/L 04/11/2025 5:11 PM [facility] BUN 18 6 - 23 mg/dL 04/11/2025 5:11 PM [facility] Creatinine 0.80 0.50 - 1.00 mg/dL 04/11/2025 5:11 PM [facility] eGFR 79 >59 mL/min/1.7 3m2 04/11/2025 5:11 PM [facility] Comment:Estimated glomerular filtration rate calculated using the CKD-EPI refit equation. Glucose 98 70 - 99 mg/dL 04/11/2025 5:11 PM [facility] Calcium 9.9 8.5 - 10.5 mg/dL 04/11/2025 5:11 PM [facility] AST 30 <33 U/L 04/11/2025 5:11 PM [facility] ALT 18 <34 U/L 04/11/2025 5:11 PM [facility] Alkaline Phosphatase 99 40 - 130 U/L 04/11/2025 5:11 PM [facility] Bilirubin, Total 0.4 0.0 - 1.2 mg/dL 04/11/2025 5:11 PM [facility] Total Protein 7.6 6.4 - 8.3 g/dL 04/11/2025 5:11 PM [facility] Albumin 4.2 3.5 - 5.2 g/dL 04/11/2025 5:11 PM [facility] Globulin 3.4 1.9 - 4.1 g/dL 04/11/2025 5:11 PM [facility] Blood 04/11/2025 12:1 5 PM EST 04/11/2025 11:51 AM EST us Tawnya Langston MD LAB BLOOD BKR ORDERABLES Final Result [address] [address] * (ABNORMAL) CBC and Differential (04/11/2025 12:15 PM EST) WBC 10.30 4.00 - 11.00 K/uL 04/11/2025 4:13 PM [facility] RBC 4.36 4.00 - 5.20 M/uL 04/11/2025 4:13 PM [facility] Hemoglobin 12.3 12.0 - 16.0 g/dL 04/11/2025 4:13 PM [facility] Hematocrit 38.4 36.0 - 46.0 % 04/11/2025 4:13 PM [facility] MCV 88.1 80.0 - 100.0 fL 04/11/2025 4:13 PM [facility] MCH 28.2 27.0 - 31.0 pg 04/11/2025 4:13 PM [facility] MCHC 32.0 32.0 - 36.0 g/dL 04/11/2025 4:13 PM [facility] MPV 12.2(H) 8.4 - 12.0 fL 04/11/2025 4:13 PM [facility] RDW-CV 15.1(H) 11.5 - 14.5 % 04/11/2025 4:13 PM [facility] PLT 194 150 - 450 K/uL 04/11/2025 4:13 PM [facility] Neutrophils 61.7 % 04/11/2025 4:13 PM [facility] Lymphocytes 26.6 % 04/11/2025 4:13 PM [facility] Monocytes 7.1 % 04/11/2025 4:13 PM [facility] Eosinophils 4.0 % 04/11/2025 4:13 PM [facility] Basophils 0.3 % 04/11/2025 4:13 PM [facility] Imm Grans 0.3 % 04/11/2025 4:13 PM [facility] NRBC 0.0 <=0.0 /100 WBCs 04/11/2025 4:13 PM [facility] Absolute Neutrophils 6.36 1.92 - 7.60 K/uL 04/11/2025 4:13 PM [facility] Absolute Lymphocytes 2.74 0.72 - 4.10 K/uL 04/11/2025 4:13 PM [facility] Absolute Monocytes 0.73 0.16 - 1.10 K/uL 04/11/2025 4:13 PM [facility] Absolute Eosinophils 0.41 0.00 - 0.50 K/uL 04/11/2025 4:13 PM [facility] Absolute Basophils 0.03 0.00 - 0.15 K/uL 04/11/2025 4:13 PM [facility] Absolute Imm Grans 0.03 0.00 - 0.09 K/uL 04/11/2025 4:13 PM [facility] Absolute NRBC 0.00 <=0.00 K cells/uL 04/11/2025 4:13 PM [facility] Absolute Neutrophils 6.36 1.92 - 7.60 K/uL 04/11/2025 4:13 PM [facility] Comment:Automated cell count . Manual ANC may differ if performed. Diff Type Auto 04/11/2025 4:13 PM [facility] Blood 04/11/2025 12:1 5 PM EST 04/11/2025 11:51 AM EST us Tawnya Langston MD LAB BLOOD BKR ORDERABLES Final Result Performing Organization Address [facility]/ZIP Co de Phone Number [address] [address] * Erythrocyte Sedimentation Rate (ESR) (04/11/2025 12:15 PM EST) Pathologist [facility] ESR 14 0 - 30 mm/h 04/11/2025 4:32 PM [facility] Blood 04/11/2025 12:1 5 PM EST 04/11/2025 11:51 AM EST us Tawnya Langston MD LAB BLOOD BKR ORDERABLES Final Result Performing Organization Address [facility] Phone Number [address] [address] * C-Reactive Protein (CRP) (04/11/2025 12:15 PM EST) C Reactive Protein 3.1 <10.0 mg/L 04/11/2025 5:16 PM [facility] Comment:NOTE: This reference range is for the evaluation of inflammation. Order CRP, High Sensitivity for cardiac risk status evaluation. Blood 04/11/2025 12:1 5 PM EST 04/11/2025 11:51 AM EST us Tawnya Langston MD LAB BLOOD BKR ORDERABLES Final Result Performing Organization Address City/[facility] Co de Phone Number [address] [place] [address] * Hepatitis C antibody, qualitative (04/11/2023 12:21 PM EST) HCV NON-REACTIV E NON-REACTI VE [facility] Blood 04/11/2023 12:2 1 PM EST 04/11/2023 12:27 PM EST us Rocael Butts MD LAB BLOOD BKR ORDERABLE S Final Result [facility] [address] [place] [address] from Last 3 Months or Most Recently Relevant to Health Maintenance Insurance [facility]ICARE [facility] MEDICARE PART A & B MEDICARE [facility] MEDICAL [facility] Address: [facility] [id number] [place] [address] MEDICARE PART A & B MEDICARE A [facility] MEDICAL [facility] Address[facility] [id number] [place] [address] [facility] MEDICARE A [facility] MEDICARE PART A & B MEDICARE A MEDICAL [facility] Address: [facility] [id number] [place] [address] MEDICARE PART A & B MEDICARE A [facility] MEDICAL [facility] Address[facility] [id number] [place] [address] [facility] MEDICARE PART A & B MEDICARE A [facility] MEDICARE PART A & B Care Teams Operations Vice President Relationship Specialty Start Date End Date Rivera Galicia DO [address] [place] [address] [address] [place] [address] PCP - General Internal Medicine 04/11/23 Kevin Henson MD juan Cardiology 07/12/17 Additional Source Comments The information contained in this document represents components of the legal health record. It is not the complete legal health record.[facility]
--- OUTSIDE RECORDS SUMMARY | 2025-05-23 14:24 | XMS_ITS | Encounter Summary ---
Author Organization [facility] Address [address] [place] [address] [place] [phone] Phone Care Team Providers Care Assistant Professor Of Music Name Role Phone Enrrique Mckeon DO Primary Care Provider Un available Kevin Henson MD Unavailable [email or web address] JustinRivera cooper DO Primary Care Provider [phone] Reason for Referral * Consultation (Elective) - Closed Specialty Diagnoses / Procedures Referred By Contac t Referred To Contact Neurology Diagnoses Movement disorder Clara Izquierdo MD Phone: tel: fax: Referral ID Status Reason Start Date Expiration Date Visits Re quested Visits Authorized [id number] Closed 2015 09/08/2016 1 1 Encounter Details Date Type Department Care Team (Latest Contact Info) Description 2015 Transcribe Orders [facility] [address] [place] [address], [address] Floor, [address] [place] [address] Clara Izquierdo MD [address] [address] Movement disorder (Primary Dx) Social History Tobacco Use Types Packs/Day Years Used Date Smoking Tobacco: Never Assessed Comments Unknown Sex and Gender Information Value Date Recorded Sex Assigned at Not on file Legal Sex Female 7:48 PM EST Gender Identity Not on file Sexual Orientation Not on file documented as of this encounter Plan of Treatment Upcoming Encounters Date Type Department Care Team (Late Contact Info) Description 06/17/2025 1:00 PM EST Office Visit [facility] [address] [place] [address] Tawnya Langston MD [address] [place] [phone] Kristine Prieto, PT [address] [place] [address] 06/20/2025 1:30 PM EST Office Visit [facility] [address] [place] [address] Tawnya Langston MD [address] [place] [phone] Kristine Prieto, PT [address] [place] [address] 07/01/2025 1:00 PM EST Office Visit [facility] [address] [place] [address] Tawnya Langston MD [address] [place] [phone] Kristine Prieto, PT [address] [place] [address] 07/04/2025 1:30 PM EST Office Visit [facility] [address] [place] [address] Tawnya Langston MD [address] [place] [phone] Kristine Prieto, PT [address] [place] [address] 07/08/2025 1:00 PM EST Office Visit [facility] [address] [place] [address] Tawnya Langston MD [address] [place] [phone] Kristine Prieto, PT [address] [place] [address] 07/11/2025 1:30 PM EST Office Visit [facility] Therapy [address] [address] Tawnya Langston MD [address] [place] [phone] Kristine Prieto, PT [address] [place] [address] 07/15/2025 1:00 PM EST Office Visit [facility] [address] [address] Tawnya Langston MD [address] [place] [phone] Kristine Prieto, PT [address] [place] [address] 07/18/2025 1:30 PM EST Office Visit [facility] [address] [place] [address] Tawnya Langston MD [address] [place] [phone] [email or web address] Kristine Prieto, PT [address] [place] [address] [email or web address] 08/12/2025 10:00 AM EDT Office Visit [facility] [address] [place] [address] Tawnya Langston MD [address] [facility], [address] [place] [address] 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 Cardiology 07/12/17 documented as of this encounter Additional Source Comments The information contained in this document represents components of the legal health record. It is not the complete legal health record.[facility]
== END 2025-05-23 11:25 | disposition home or self-care (01) ==
PROVIDERS: PCP Internal Medicine; Visit Provider Psychiatry & Neurology Neurology
DX: G25.2 Other specified forms of tremor (principal); I63.89 Other cerebral infarction
CPT/HCPCS: 99214

== ENCOUNTER → 2025-05-23 11:01 | Outpatient (BNVA) | payer MEDICARE, BC, SELFPAY | PROVIDERS: PCP Internal Medicine; Visit Provider Psychiatry & Neurology Neurology | DX: G25.2 Other specified forms of tremor (principal); I63.89 Other cerebral infarction | CPT/HCPCS: 99212 ==